=== PATIENT | female | born 1965 | race Caucasian/White ===

== ENCOUNTER 2022-04-22 14:28 | Outpatient (CLI) | payer OTHER, SELFPAY ==
--- NOTE | 2022-04-22 15:00 | CRLHL7_ITS ---
For Patients: As a result of the Century Cures Act, medical imaging exams and procedure reports are released immediately into your electronic medical record. You may view this report before your referring provider. If you have questions, please contact your health care provider. INDICATION: BRAIN LESION COMPARISON: none TECHNIQUE: A CT volumetric acquisition was performed of the brain without IV contrast. Please note that all CT scans at this facility use dose modulation, iterative reconstruction, and/or weight-based dosing when appropriate to reduce radiation dose to as low as reasonably achievable. FINDINGS: The CT images reveal a normal appearance of the cerebral ventricles and basal cisterns. There is no evidence of intracranial hemorrhage, tissue infarction or mass effect. The mastoid air cells and middle ear cavities are clear. The calvarium appears intact. There is a well-circumscribed structure within the clivus measuring 1 centimeter with soft tissue density and apparent communication to the left posterior sphenoid sinus. External auditory canal ear wax. IMPRESSION: Accessory left sphenoid sinus disease. Normal brain parenchyma. Please note that all CT scans at this facility use dose modulation, iterative reconstruction, and/or weight-based dosing when appropriate to reduce radiation dose to as low as reasonably achievable. Dictated by Wilberto Vicente MD @ 04/22/2022 3:22:43 PM (Electronically Signed)
--- NOTE | 2022-04-22 15:30 | CRLHL7_ITS ---
For Patients: As a result of the Cures Act, medical imaging exams and procedure reports are released immediately into your electronic medical record. You may view this report before your referring provider. If you have questions, please contact your health care provider. INDICATION: Evaluate clivus. TECHNIQUE: Multiplanar multisequence MR imaging acquired through the brain prior to and following intravenous contrast. COMPARISON: CT brain 04/22/2022, MRI brain 07/01/2021. FINDINGS: Circumscribed, 10 mm rounded T1/T2 hyperintensity within the clivus slightly caudal to the sella, not significantly changed. The recent CT demonstrates probable communication between the aforementioned signal intensity and left sphenoid sinus. The ventricles and sulci are within normal limits for patient age. No mass effect or midline shift. Stable scattered T2 FLAIR hyperintensities in the supratentorial white matter, nonspecific though typical for sequela of minimal chronic microvascular ischemic changes or migraine headaches. No intracranial hemorrhage or pathologic extra-axial fluid collection. No diffusion restriction to suggest acute infarction. No pathologic intra-axial or leptomeningeal enhancement. The major arterial flow voids of the skullbase are preserved. The globes are symmetric. The paranasal sinuses are well aerated. Trace mastoid fluid bilaterally. IMPRESSION: 1. Small circumscribed hyperintense signal in the clivus is not significantly changed compared to 07/01/2021. Given appearance on recent CT, findings are most compatible with entrapped secretions within the left sphenoid sinus. 2. No acute intracranial abnormality. Dictated by John Ambrose MD @ 04/24/2022 11:00:01 AM (Electronically Signed)
== END 2022-04-22 14:29 | disposition home or self-care (01) ==
LOC: CT 14:30
PROVIDERS: PCP Physician Assistant Medical; Visit Provider Neurological Surgery
DX: G93.9 Disorder of brain, unspecified (principal); J32.3 Chronic sphenoidal sinusitis
CPT/HCPCS: 70450; 70553; A9575

== ENCOUNTER 2022-09-21 08:14 | Outpatient (CLI) | payer OTHER, SELFPAY | END 2022-09-21 08:15 | disposition home or self-care (01) | LOC: FRMREF 09-23 09:21 | PROVIDERS: PCP Physician Assistant Medical; Visit Provider Physician Assistant Medical | DX: R82.90 Unspecified abnormal findings in urine (principal); N30.00 Acute cystitis without hematuria | CPT/HCPCS: 87086; 87186 ==

== ENCOUNTER 2022-09-26 15:14 | Outpatient (CLI) | payer OTHER, SELFPAY ==
--- NOTE | 2022-09-26 15:20 | CRLHL7_ITS ---
For Patients: As a result of the Century Cures Act, medical imaging exams and procedure reports are released immediately into your electronic medical record. You may view this report before your referring provider. If you have questions, please contact your health care provider. BILATERAL SCREENING MAMMOGRAM WITH COMPUTER-AIDED DETECTION AND TOMOSYNTHESIS TECHNIQUE: CC and MLO views were obtained. These mammographic images have been obtained using full-field digital technique. These mammographic images were interpreted with the benefit of computer-aided detection. Breast Tomosynthesis was used in this interpretation. COMPARISON FILM: 08/22/19, 05/25/16, 07/10/08. FINDINGS: The breasts are heterogeneously dense, which may obscure small masses IMPRESSION: There is no radiographic evidence for malignancy. ASSESSMENT: BI-RADS Category 1: Negative RECOMMENDATION: Routine screening mammogram in 1 year. A lay language report of this examination will be provided to the patient. Wilberto Vicente M.D. Diagnostic Radiologist [email or web address] CARMELITA/Dictated by: Wilberto Vicente MD @ 09/27/2022 9:25:00 AM (Electronically Signed)
== END 2022-09-26 15:15 | disposition home or self-care (01) ==
LOC: MAMMO 15:15
PROVIDERS: PCP Physician Assistant Medical; Visit Provider Physician Assistant Medical
DX: Z12.31 Encounter for screening mammogram for malignant neoplasm of breast (principal); R92.2 Inconclusive mammogram
CPT/HCPCS: 77063; 77067

== ENCOUNTER 2022-10-10 17:17 | Outpatient (CLI) | payer OTHER, SELFPAY | END 2022-10-10 17:18 | disposition home or self-care (01) | LOC: LKVREF 10-14 09:36 | PROVIDERS: PCP Physician Assistant Medical; Visit Provider Nurse Practitioner Family | DX: R30.0 Dysuria (principal); N30.90 Cystitis, unspecified without hematuria | CPT/HCPCS: 87086; 87186 ==

== ENCOUNTER 2022-10-25 16:55 | Outpatient (CLI) | payer OTHER, SELFPAY | END 2022-10-25 16:56 | disposition home or self-care (01) | PROVIDERS: PCP Physician Assistant Medical; Visit Provider Family Medicine | DX: N39.0 Urinary tract infection, site not specified (principal) | CPT/HCPCS: 87086; 87186 ==

== ENCOUNTER 2022-11-15 14:01 | Outpatient (CLI) | payer OTHER, SELFPAY | END 2022-11-15 14:02 | disposition home or self-care (01) | LOC: NFLDREF 11-17 10:34 | PROVIDERS: PCP Physician Assistant Medical; Referring Provider Physician Assistant Medical; Visit Provider Physician Assistant Medical | DX: N39.0 Urinary tract infection, site not specified (principal) | CPT/HCPCS: 87086 ==

== ENCOUNTER 2023-03-07 15:55 | Outpatient (CLI) | payer OTHER, SELFPAY | END 2023-03-07 15:56 | disposition home or self-care (01) | LOC: NFLDREF 03-08 05:34 | PROVIDERS: PCP Physician Assistant Medical; Referring Provider Physician Assistant Medical; Visit Provider Registered Nurse | DX: R30.0 Dysuria (principal); N39.0 Urinary tract infection, site not specified | CPT/HCPCS: 87086; 87186 ==

== ENCOUNTER 2023-03-21 16:07 | Outpatient (CLI) | payer OTHER, SELFPAY | END 2023-03-21 16:08 | disposition home or self-care (01) | LOC: NFLDREF 03-22 08:19 | PROVIDERS: PCP Physician Assistant Medical; Referring Provider Physician Assistant Medical; Visit Provider Registered Nurse | DX: N39.0 Urinary tract infection, site not specified (principal) | CPT/HCPCS: 87086; 87186 ==

== ENCOUNTER 2023-04-20 13:53 | Outpatient (CLI) | payer OTHER, SELFPAY ==
--- NOTE | 2023-04-20 14:00 | CRLHL7_ITS ---
For Patients: As a result of the Century Cures Act, medical imaging exams and procedure reports are released immediately into your electronic medical record. You may view this report before your referring provider. If you have questions, please contact your health care provider. INDICATION: Brain lesion found on MRI. TECHNIQUE: Multiplanar CT of the head prior to and after the administration 66 cc iodinated contrast. COMPARISON: CT head dated 04/22/2022. FINDINGS: No acute intracranial hemorrhage. The chase-white matter interface is preserved. No focus of abnormal enhancement on postcontrast imaging. The ventricles are normal in size. No significant interval change in the 9 mm well-circumscribed clival lucency communicating anteriorly with the sphenoid sinus. Unremarkable appearance of the orbits. No suspicious calvarial lesion. IMPRESSION: 1. No acute intracranial abnormality. 2. Stable 9 mm well-circumscribed clival lucency likely reflecting trapped secretions within an accessory sphenoid sinus. Please note that all CT scans at this facility use dose modulation, iterative reconstruction, and/or weight-based dosing when appropriate to reduce radiation dose to as low as reasonably achievable. Dictated by Robi Gonzalez MD @ 04/21/2023 10:50:30 AM (Electronically Signed)
--- NOTE | 2023-04-20 14:45 | CRLHL7_ITS ---
For Patients: As a result of the Century Cures Act, medical imaging exams and procedure reports are released immediately into your electronic medical record. You may view this report before your referring provider. If you have questions, please contact your health care provider. Indication: Lesion follow-up Technique: Noncontrast sagittal T1, axial FLAIR, T2 turbo spine echo, and diffusion weighted images. Supplemental post contrast T1 weighted axial and coronal sequences are provided after administration of 15 mL gadolinium-based IV contrast. Comparison: CT 04/20/2023 and MRI 04/22/2022 Findings: The ventricles, sulci and gyri are normal size, shape and contour for age. The midline structures are centrally located with no evidence of shift. There are no suspicious intra or extra-axial fluid collections. Stable small scattered foci of T2 prolongation in the cerebral white matter that are nonspecific. Stable nonenhancing T1 hyperintense oval 8 mm structure in the clivus with well-circumscribed corticated margins likely representing proteinaceous inspissated secretions or retention cyst in a small cleft of the left sphenoid sinus protruding into the clivus. No evidence of restricted diffusion to suggest acute ischemia. Stable pituitary gland and optic chiasm. The cervical tonsils are normal in signal and location. Expected flow voids in the cavernous carotids and basilar artery. No abnormal contrast enhancement involving the brain parenchyma, meninges, calvarium or skull base. None Impression: 1. No acute intracranial abnormality. 2. Stable nonenhancing T1 hyperintense oval 8 mm structure in the clivus with well-circumscribed corticated margins likely representing proteinaceous inspissated secretions or retention cyst in a small cleft of the left sphenoid sinus protruding into the clivus. 3. Stable mild chronic small vessel disease. Dictated by Wilberto Aguilar MD @ 04/21/2023 11:49:12 AM (Electronically Signed)
== END 2023-04-20 13:54 | disposition home or self-care (01) ==
LOC: CT 13:54
PROVIDERS: PCP Physician Assistant Medical; Visit Provider Neurological Surgery
DX: G93.9 Disorder of brain, unspecified (principal)
CPT/HCPCS: 70470; 70553; A9575; Q9967

== ENCOUNTER 2024-04-10 08:19 | Outpatient (CLI) | payer OTHER, SELFPAY ==
--- OUTSIDE RECORDS SUMMARY | 2024-04-10 08:22 | XMS_ITS | Continuity of Care Document ---
Author Name [facility] Organization [facility] Care Team Providers Care Bench Grinder Name Role Phone [facility] Unavailable Unavailable Medications Combined list of outpatient medications from Department of Defense and Veterans Affairs facilities.Medications provided include 1) outpatient medications from the last 15 months, and 2) patient-reported medications. Medication Details Route Status Patient Instructions Prescription Expires Prescription Number Last Dispense Date Ordering Provider Order Date Order Qty Source CEPHALEXIN (CEPHALEXIN MONOHYDRATE ), 500MG, CAPSULE, ORAL, TEVA USA, 500 ea. BOTTLE Active [id number] 4 2023 14 Pharmac y Data Transac tion Service Facilit y NITROFURANT OIN MONO-MACRO (NITROFURAN TOIN MONOHYD/M-C RYST), 100 MG, CAPSULE, ORAL, ALVOGEN INC, 100 ea. BOTTLE Active [id number] 4 2023 14 Pharmac y Data Transac tion Service Facilit y SULFAMETHOX AZOLE-TRIME THOPRIM (SULFAMETHO XAZOLE/TRIM ETHOPRIM), 800-160MG, TABLET, ORAL, AUROBINDO PHARM, 500 ea. BOTTLE Active [id number] 4 2023 14 Pharmac y Data Transac tion Service Facilit y SULFAMETHOX AZOLE-TRIME THOPRIM (SULFAMETHO XAZOLE/TRIM ETHOPRIM), 800-160MG, TABLET, ORAL, AUROBINDO PHARM, 500 ea. BOTTLE Active [id number] 4 2023 14 Pharmac y Data Transac tion Service Facilit y Immunizations Combined list of available immunizations from the Department of Defense and Veterans Affairs facilities. Immunization Series Date Given Administered By Site Reaction Lot Number CVX Code Drug Nutritional Chemist Status Comments Source INFLUENZA, UNSPECIFIED FORMULATION 2010 88 complet ed [place] [facility] Social History Combined list of available smoking, tobacco, and other social history from Department of Defense and Veterans Affairs facilities. Social History Type Response Date Comment Sourc e This section is an empty social history section. DoD
--- OUTSIDE RECORDS SUMMARY | 2024-04-10 08:22 | XMS_ITS | Continuity of Care Document ---
Author Organization [facility] Address [address] [place] [address] Phone Care Team Providers Care Preparation Plant Supervisor Name Role Phone Ondina MAN, PhD, Aleksey Unavailable Unavai lable Allergies, Adverse Reactions, Alerts Substance Reaction Status Criticality simvastatin Muscle pain Active No Information Medications Medication Instructions Dosage Effective Dates (start - stop) Status Comments OXYBUTYNIN CHLORIDE (unknown strength) Not Available - Active IBUPROFEN (unknown strength) Not Available - Active CITALOPRAM HBR (unknown strength) Not Available - Active ADDERALL (unknown strength) Not Available - Active Procedures Procedure Date Office/Outpatient Visit,[facility], [facility] 2019 Advance Directives Directive Yes / No Effective Date File Name No Information Encounters Encounter Description Practice Location Reason(s) For Visit Diagnoses Date Provider Providers Copied on Encounter [facility], [address], [place], [id number] , [place] tel: [phone] [facility] No Information 0 Ondina Ryder. [facility], [address], [place], [address], [place]. tel: [phone] Office/Outpat ient Visit, [facility], [address], [place], [id number] , [place] tel: [phone] [facility] Other intervertebral disc displacement, lumbar region 0 Ondina Ryder. [facility], [address], [place], [address], [place]. [phone] Referring Provider: Gm Ribeiro [address], [place], [address]. tel:[phone] [facility], [address], [place], [place], [id number] , [place] tel:[phone] [facility] Low back pain 0 Ondina Ryder. [facility], [address], [place], [address], [place]. [phone] Family History Family Member Type Diagnosis Age At Onset No Information Payers Payer name Insurance type Covered republican ID Authorden jarvistierra(s) [facility] [id number] Social History Type Description Quantity Date Captured Comments Sex Female Smoking Status No Information Chief Complaint And Reason For Visit No Information Reason For Referral Reason For Referral No Information History Of Present Illness Encounter Date Complaint History Of Prese nt Illness No Information Functional Status Date Functional Assessmen t No Information Instructions Date Instruction Additional Infor mation No Information Assessments Type Assessment Date No Information Patient Care Teams Name Effective Dates (start - stop) Status Members No Information
== END 2024-04-10 08:20 | disposition home or self-care (01) ==
PROVIDERS: PCP Physician Assistant Medical; Visit Provider Physician Assistant Medical
DX: R00.2 Palpitations (principal); Z13.220 Encounter for screening for lipoid disorders
CPT/HCPCS: 80053; 80061; 84443

== ENCOUNTER 2024-04-26 07:42 | Outpatient (CLI) | payer OTHER, SELFPAY ==
--- OUTSIDE RECORDS SUMMARY | 2024-04-26 07:45 | XMS_ITS | Encounter Summary ---
Author Organization [facility] Address [address] [place] [address]. [place] [address] Care Team Providers Care Experimental Psychologist Name Role Phone Sera Hoffman PA-C Primary Care Provider Zara Ingram MD Unavailable [phone] Nuvia Jauregui PA-C Unavailable [phone] Encounter Details Date Type Department Care Team (Late Contact Info) Description 07/06/2023 MyC Medical Advice [facility] [place] [address] [place] [address] Nuvia Jauregui PA-C [address] [place] [address] Social History Tobacco Use Types Packs/Day Years Used Date Smoking Tobacco: Former Cigarettes Smokeless Tobacco: Never Alcohol Use Standard Drinks/Week Comments Yes 0 (1 standard drink = 0.6 oz pur e alcohol) Adolescent Education Answer Date Record ed Getting School Help Needed Not on file 05/30 Sex and Gender Information Value Date Recorded Sex Assigned at Female 05/29/2023 5:20 PM CDT Gender Identity Female 05/29/2023 5:20 PM CDT Sexual Orientation Straight 05/29/2023 5: 20 PM CDT documented as of this encounter Plan of Treatment Upcoming Encounters Date Type Department Care Team (Late Contact Info) Description 05/30/2024 7:30 AM CDT Therapy Visit [facility] [place] [address] [address] Monica Murray, PT [address] [place] [address] 06/06/2024 8:10 AM CDT Therapy Visit [address] [address] Monica Murray, PT [address] [place] [address] 06/13/2024 8:10 AM CDT Therapy Visit [address] [address] Monica Murray, PT [address] [place] [address] 06/20/2024 8:10 AM CDT Therapy Visit [address] [address] Monica Murray, PT [address] [place] [address] 06/27/2024 8:10 AM CDT Therapy Visit [address] [address] Monica Murray, PT [address] [place] [address] 08/09/2024 3:00 PM OPTICAL ENGINEERING TECHNICIAN Office Visit [facility] [place] [address] [place] [phone] Nuvia Jauregui PA-C [address] [place] [address] documented as of this encounter Visit Diagnoses Not on filedocumented in this encounter Care Teams Experimental Psychologist Relationship Specialty Start Date End Date Sera Hoffman PA-C [facility] [address] [place] [address] PCP - General Physician Hogshead Dumper 04/11/23 Zara Ingram MD [address] [place] [address] [address] [place], [place] [address] Assigned Surgical Provider 07/22/23 09/20/23 Nuvia Jauregui PA-C [address] [place] [address] Assigned Surgical Provider 09/21/23 documented as of this encounter
--- OUTSIDE RECORDS SUMMARY | 2024-04-26 07:45 | XMS_ITS | Encounter Summary ---
Author Organization [facility] Address [address] [place] [address]. [place] [address] Care Team Providers Care Chief Petroleum Engineer Name Role Phone Sera Hoffman PA-C Primary Care Provider Nuvia Jauregui PA-C Unavailable [phone] Reason for Visit * Reason Comments Urinary Retention Here for 1 month fol low up Encounter Details Date Type Department Care Team (Late st Contact Info) Description 01/18/2024 2:30 PM CDT Office Visit [facility] [place] [address] [place] [address] [address] [place] [address] Nuvia Jauregui PA-C [address] [place] [address] Recurrent UTI (Primary Dx); Urinary retention; Incomplete bladder emptying; Constipation, unspecified constipation type; Pelvic floor dysfunction; Dyspareunia in female; Vaginal atrophy; Levator spasm Social History Tobacco Use Types Packs/Day Years Used Date Smoking Tobacco: Former Cigarettes Smokeless Tobacco: Never Alcohol Use Standard Drinks/Week Comments Yes 0 (1 standard drink = 0.6 oz pur e alcohol) PHQ-2 Answer Date Recorded PHQ-2 Score 0 07/26/2023 Adolescent Education Answer Date Record ed Getting School Help Needed Not on file 05/30 Sex and Gender Information Value Date Recorded Sex Assigned at Female 05/29/2023 5:20 PM CDT Gender Identity Female 05/29/2023 5:20 PM CDT Sexual Orientation Straight 05/29/2023 5: 20 PM CDT documented as of this encounter Last Filed Vital Signs Vital Sign Reading Time Taken Comments Blood Pressure - - Pulse - - Temperature - - Respiratory Rate - - Oxygen Saturation - - Inhaled Oxygen Concentration - - Weight 61.2 kg (135 lb) 01/18/2024 2:24 PM CDT Height 160 cm (5' 2.99) 01/18/2024 2:24 PM CDT Body Mass Index 23.92 01/18/2024 2:24 PM CDT documented in this encounter Progress Notes * Nuvia Jauregui PA-C - 01/18/2024 2:30 PM CDT Urology Clinic Name: [facility] Date of : 1965 Accompanied at today's visit by:self Chief Complaint: Incomplete bladder emptying History of Present Illness: January 18, 2024 HISTORY: We have been following 58 year old Zara Samuel for Carlo, dyspareunia, levator spasm, pelvic floor dysfunction, vaginal atrophy, constipation, incomplete bladder emptying. Her CT urogram from 06/29/23 showed Mildly prominent intrarenal collecting renal pelvis on the left. This may indicate a l eft ureteropelvic junction obstruction. Was seen by Dr. Ingram on 07/19/23 for cysto which was unremarkable and advised to proceed with PFPT and obtain lasix renal scan. NM lasix renogram that was negative for obstruction on 07/25/23. She is also noted to have incomplete bladder emptying when followed with OBGYN specialists in 12/2022. Did trial pessary sizes at that time as well (ring #3 an #2) forincomplete emptying and cystocele grade 1-2 with vaginal vault prolapse grade 1 at that time. No longer uses pessaries. At consultation on 05/30/23, did not see obvious significant prolapse. DiscussedCIC in 06/2023, however patient did not start CIC at that time. Last encounter on 12/15/23 noted to have elevated PVR of 535mL. Strongly advised CIC TID. Messaged to clinic on 12/21/23 with PVRs 100-200mL and advised to decrease to CIC BID. Here today for follow-up. Per EMR, has not had UTI since last encounter. Continues to cath BID. Reports PVRs are between 100-200mL. Has yet to get back to PFPT but would like to as it was significantly helping her symptoms. Of note, have considered valium vaginal suppositories in the past. Continues on methenamine and Vitamin C along with estrogen cream for UTI prevention. Started stool softeners for her constipation. Patient voices no other concerns at this time. Allergies: Allergies Allergen Reactions Simvastatin Muscle Pain (Myalgia) Medications: Current Outpatient Medications Medication Sig Dispense Refill amphetamine-dextroamphetamine (ADDERALL) 20 MG tablet twice a day amphetamine-dextroamphetamine (ADDERALL) 20 MG tablet buPROPion (WELLBUTRIN XL) 150 MG 24 hr tablet methenamine hippurate (HIPREX) 1 g tablet Take 1 tablet (1 g) by mouth 2 times daily Must take with1 gram vitamin C twice daily. 30 tablet 3 sulfamethoxazole-trimethoprim (BACTRIM DS) 800-160 MG tablet Take 1 tablet by mouth 2 times daily Take if develop UTI symptoms on your trip 14 tablet 0 No current facility-administered medications for this visit. Past Surgical History: Past Surgical History: Procedure Laterality Date BUNIONECTOMY SECTION HYSTERECTOMY TUBAL LIGATION Physical Exam: Vitals: 01/18/24 1424 Weight: 61.2 kg (135 lb) Height: 1.6 m (5' 2.99) PSYCH: NAD EYES: EOMI NEURO: AAO x3 LABS: UC 12/15/23 >100,000 E. Coli (pansensitive) 11/29/23 >100,000 E. Coli (pansensitive) 10/18/23 50,000-100,000 E. Coli (pansensitve) 09/25/23 50,000-100,000 E. Coli (pansensitive) Creatinine Date Value Ref Range Status 07/04/2023 0.64 0.51 - 0.95 mg/dL Final Assessment and Plan: 58 year old is a pleasant female who has incomplete bladder emptying/retention, Carlo, dyspareunia, levator spasm, pelvic floor dysfunction, vaginal atrophy, constipation. Plan: - continue CIC; try going down to once daily and monitor PVRs. - plans to go back to PFPT. - continue estrogen cream. - continue methenamine and vitamin C. - Have discussed VUDS in the future, however patient would like to get back to PFPT first before pursuing this. - Plan to follow-up in 3 months - contact clinic if develops s/s of UTI in the future. - continue stool softeners for constipation. - After discussing the assessment and plan with patient, patient verbalizes understanding and agrees to the above plan. All questions answered. 24 minutes spent on the date of the encounter doing chart review, review of labs, review of test results, interpretation of tests, patient visit and documentation. Nuvia Jauregui PA-C Urology January 18, 2024 Patient Care Team: Sera Hoffman PA-C as PCP - General (Physician Onion Farmer) Nuvia Jauregui PA-C as Assigned Surgical Provider documented in this encounter Plan of Treatment Upcoming Encounters Date Type Department Care Team (Late st Contact Info) Description 05/30/2024 7:30 AM CDT Therapy Visit [address] [address] Monica Murray, PT [address] [place] [address] 06/06/2024 8:10 AM CDT Therapy Visit [address] [address] Monica Murray, PT [address] [place] [address] 06/13/2024 8:10 AM CDT Therapy Visit [address] [address] Monica Murray, PT [address] [place] [address] 06/20/2024 8:10 AM CDT Therapy Visit [address] [place] [address] [place] [address] [place] [address] 06/27/2024 8:10 AM CDT Therapy Visit [facility] [address] [place] [address] [address] [place] [address] [place], [place] [id number] [place] [address] 08/09/2024 3:00 PM GAS PLANT TECHNICIAN Office Visit [facility] [address] [place] [phone] Nuvia Jauregui PA-C [address] [place], [place] [phone] documented as of this encounter Visit Diagnoses Diagnosis Recurrent UTI- Primary Urinary tract infection, site not specified Urinary retention Retention of urine, unspecified Incomplete bladder emptying Constipation, unspecified constipation type Pelvic floor dysfunction Pelvic muscle wasting Dyspareunia in female Vaginal atrophy Postmenopausal atrophic vaginitis Levator spasm Abnormal involuntary movements documented in this encounter Care Teams Chief Petroleum Engineer Relationship Specialty Start Date End Date Sera Hoffman PA-C [facility] [address] [place] [address] PCP - General Physician Onion Farmer 04/11/23 Nuvia Jauregui PA-C [address] [place] [address] Assigned Surgical Provider 09/21/23 documented as of this encounter
--- OUTSIDE RECORDS SUMMARY | 2024-04-26 07:45 | XMS_ITS | Encounter Summary ---
Author Organization [facility] Address [address] [place] [address]. [place] [address] Care Team Providers Care Launching Pad Mechanic Name Role Phone Sera Hoffman PA-C Primary Care Provider Nuvia Jauregui PA-C Unavailable [phone] Reason for Visit * Reason Comments Recurrent UTI's 3 month follow up Encounter Details Date Type Department Care Team (Late st Contact Info) Description 04/25/2024 2:30 PM CDT Office Visit [facility] [address] [place] [address] Nuvia Jauregui PA-C [address] [place], [place] [address] Recurrent UTI (Primary Dx); Urinary retention; Incomplete bladder emptying; Constipation, unspecified constipation type; Pelvic floor dysfunction; Dyspareunia in female; Vaginal atrophy; Levator spasm Social History Tobacco Use Types Packs/Day Years Used Date Smoking Tobacco: Former Cigarettes Passive Smoke Exposure: Never Smokeless Tobacco: Never Tobacco Cessation:Counseling Given: Not Answered Alcohol Use Standard Drinks/Week Comments Yes 0 (1 standard drink = 0.6 oz pur e alcohol) PHQ-2 Answer Date Recorded PHQ-2 Score 0 04/25/2024 Adolescent Education Answer Date Record ed Getting School Help Needed Not on file 05/30 Sex and Gender Information Value Date Recorded Sex Assigned at Female 05/29/2023 5:20 PM CDT Gender Identity Female 05/29/2023 5:20 PM CDT Sexual Orientation Straight 05/29/2023 5: 20 PM CDT documented as of this encounter Last Filed Vital Signs Vital Sign Reading Time Taken Comments Blood Pressure 131/89 04/25/2024 1:59 PM CDT Pulse 86 04/25/2024 1:59 PM CDT Temperature - - Respiratory Rate - - Oxygen Saturation 98% 04/25/2024 1:59 PM CDT Inhaled Oxygen Concentration - - Weight 61.2 kg (135 lb) 04/25/2024 1:59 PM CDT p er patient Height 160 cm (5' 3) 04/25/2024 1:59 PM CDT per patient Body Mass Index 23.91 04/25/2024 1:59 PM CDT documented in this encounter Progress Notes * Nuvia Jauregui PA-C - 04/25/2024 2:30 PM CDT Urology Clinic Name: [facility] Date of : 1965 Accompanied at today's visit by:self Chief Complaint: Follow-up History of Present Illness: April 25, 2024 HISTORY: We have been following 59 year old aZra Samuel for Carlo, dyspareunia, levator spasm, pelvic [...] did not start CIC at that time. Had an elevated PVR of 535mL at encounter on 12/15/23 and strongly advised CIC TID. She then messaged clinic on 12/21/23 with PVR amountsand advised to decrease CIC to BID. Here today for follow-up. Per EMR, no UTIs since 12/15/23 and is pleased by this. Continues on methenamine BID with vitamin C. Continues estrogen cream. Continue to cath BID. States there may be some days where her PVR for one of the times is 0mL but only occasionally. States her first PT appointment is in May. Of note, have considered valium vaginal suppositories in the past. Denies any s/s of UTI today. Patient voices no other concerns at this [...] if develop UTI symptoms on your trip (Patient not taking: Reported on 04/25/2024) 14 tablet 0 No current facility-administered medications for this visit. Past Surgical History: Past Surgical History: Procedure Laterality Date BUNIONECTOMY SECTION HYSTERECTOMY TUBAL LIGATION Physical Exam: Vitals: 04/25/24 1359 BP: 131/89 BP Location: Left arm Patient Position: Sitting Cuff Size: Adult Regular Pulse: 86 SpO2: 98% Weight: 61.2 kg (135 lb) Height: 1.6 m (5' 3) PSYCH: NAD EYES: EOMI NEURO: AAO x3 LABS: Creatinine Date Value Ref Range Status 07/04/2023 0.64 0.51 - 0.95 mg/dL Final Assessment and Plan: 59 year old is a pleasant female who has Carlo, dyspareunia, levator spasm, pelvic floor dysfunction, vaginal atrophy, constipation, incomplete bladder emptying. Plan: - continue CIC BID - keep PFPT appointments. - continue estrogen cream; renewed today. - continue methenamine and vitamin C for 3 more months then discontinue to see how she smith off of medication. - Have discussed VUDS in the future, however patient would like to get back to PFPT first before pursuing this. - Plan to follow-up July 2024. - contact clinic if develops s/s of UTI in the future. - After discussing the assessment and plan with patient, patient verbalizes understanding and agrees to the above plan. All questions answered. 15 minutes spent on the date of the encounter doing chart review, review of outside records, reviewof test results, interpretation of tests, patient visit and documentation. Nuvia Jauregui PA-C Urology April 25, 2024 Patient Care Team: Sera Hoffman PA-C as PCP - General (Physician Recovery Agent) Nuvia Jauregui PA-C as Assigned Surgical Provider documented in this encounter Nursing Notes * Lashonda Caldwell MA - 04/25/2024 2:30 PM CDT Chief Complaint Patient presents with Recurrent UTI's 3 month follow up Patient has history of UTI's. Patient states she has no uti symptoms and states she is doing well. Lashonda Caldwell MA on 04/25/2024 at 1:58 PM documented in this encounter Plan of Treatment Upcoming Encounters Date Type Department Care Team (Late st Contact Info) Description 05/30/2024 7:30 AM CDT Therapy Visit [address] [place] [address] [id number] Monica Murray, PT [address] [place] [address] [phone] 06/06/2024 8:10 AM CDT Therapy Visit [address] [place] [address] [id number] Monica Murray, PT [address] [place] [address] [phone] 06/13/2024 8:10 AM CDT Therapy Visit [address] [address] Monica Murray, PT [address] [place] [address] 364687 06/20/2024 8:10 AM CDT Therapy Visit [address] [address] Monica Murray, PT [address] [place] [address] 235857 06/27/2024 8:10 AM CDT Therapy Visit [address] [address] Monica Murray, PT [address] [place] [address] 08/09/2024 3:00 PM LINER INSTALLER Office Visit [facility] [address] [place] [address] Nuvia Jauregui PA-C [address] [place] [address] 969115 documented as of this encounter Visit Diagnoses Diagnosis Recurrent UTI- Primary Urinary tract infection, site not specified Urinary retention Retention of urine, unspecified Incomplete bladder emptying Constipation, unspecified constipation type Pelvic floor dysfunction Pelvic muscle wasting Dyspareunia in female Vaginal atrophy Postmenopausal atrophic vaginitis Levator spasm Abnormal involuntary movements documented in this encounter Care Teams Launching Pad Mechanic Relationship Specialty Start Date End Date Sera Hoffman PA-C [facility] [address] [place] [address] PCP - General Physician Recovery Agent 04/11/23 Nuvia Jauregui, KOURTNEYC [address] [place] [address] Assigned Surgical Provider 09/21/23 documented as of this encounter
--- OUTSIDE RECORDS SUMMARY | 2024-04-26 07:45 | XMS_ITS | Encounter Summary ---
Author Organization [facility] Address [address] [place] [address] Care Team Providers Care Physician Practice Coordinator Name Role Phone Sera Hoffman PA-C Primary Care Provider Nuvia Jauregui PA-C Unavailable [phone] Encounter Details Date Type Department Care Team (Latest Contact Info) Description 01/18/2024 Travel Social History Tobacco Use Types Packs/Day Years [...] Description 05/30/2024 7:30 AM CDT Therapy Visit [facility] [address] [facility] [address] [place] [address] [place] [address] [place] [address] 06/06/2024 8:10 AM CDT Therapy Visit [facility] [address] [address] Trevor Monica, PT [address] [place] [address] 06/13/2024 8:10 AM CDT Therapy Visit [address] [address] Trevor Monica, PT [address] [place] [address] 06/20/2024 8:10 AM CDT Therapy Visit [address] [address] Trevor Monica, PT [address] [place] [address] 786577 06/27/2024 8:10 AM CDT Therapy Visit [address] [address] Trevor Monica, PT [address] [place] [address] 08/09/2024 3:00 PM POWDERMAN Office Visit [facility] [place] [address] [facility] [address] [place] [phone] Nuvia Jauregui PA-C [address] [place], [place] [phone] documented as of this encounter Visit Diagnoses Not on filedocumented in this encounter Care Teams Physician Practice Coordinator Relationship Specialty Start Date End Date Sera Hoffman PA-C [facility] [address] [place] [address] PCP - General Physician Police Detective 04/11/23 Nuvia Jauregui, KOURTNEYC [address] [place], [place] [phone] Assigned Surgical Provider 09/21/23 documented as of this encounter
--- OUTSIDE RECORDS SUMMARY | 2024-04-26 07:45 | XMS_ITS | Referral Summary ---
Author Organization [facility] Address [address] [place] [address]. [place] [address] Care Team Providers Care Clay Miller Name Role Phone Sera Hoffman PA-C Primary Care Provider Nuvia Jauregui PA-C Unavailable Encounters Date Type Department Care Team Description 04/25/2024 Travel 04/25/2024 2:30 PM CDT Office Visit [facility] [place] [address] [place] [phone] Nuvia Jauregui PA-C Recurrent UTI (Primary Dx); Urinary retention; Incomplete bladder emptying; Constipation, unspecified constipation type; Pelvic floor dysfunction; Dyspareunia in female; Vaginal atrophy; Levator spasm 04/20/2024 Travel 02/15/2024 Care Coordination [facility] [place] [id number] [place] [phone] Nuvia Jauregui PA-C Clinic Care Coordination - Follow-up (CIC Follow Up) 02/07/2024 Care Coordination [facility] [address] [place] [phone] Nuvia Jauregui PA-C Clinic Care Coordination - Follow-up (CIC Follow Up) from Last 3 Months Allergies Active Allergy Reactions Criticality Noted Date Comments Simvastatin Muscle Pain (Myalgia) 03/19/2009 Medications Medication Sig Dispensed Refills Start Date End Date Status amphetamine-dextroa mphetamine (ADDERALL) 20 MG tablet 08/28/2016 Active buPROPion (WELLBUTRIN XL) 150 MG 24 hr tablet 09/28/2022 Active methenamine hippurate (HIPREX) 1 g tabletIndications:R ecurrent UTI Take 1 tablet (1 g) by mouth 2 times daily Must take with 1 gram vitamin C twice daily. 30 tablet 3 09/26/2023 Active amphetamine-dextroa mphetamine (ADDERALL) 20 MG tablet twice a day 04/26/2023 Active sulfamethoxazole-tr imethoprim (BACTRIM DS) 800-160 MG tabletIndications:R ecurrent UTI Take 1 tablet by mouth 2 times daily Take if develop UTI symptoms on your trip 14 tablet 12/15/2023 Active Additional Information Patient not taking.Reported on 04/25/2024 estradiol (ESTRACE) 0.1 MG/GM vaginal creamIndications:Re current UTI Place 2 g vaginally twice a week. 40 g 4 04/25/2024 Active Active Problems Problem Noted Date Diagnosed Date Dyspareunia in female 09/22/2023 Pelvic floor dysfunction 09/22/2023 Dyspareunia, female 09/15/2023 Levator spasm 09/15/2023 Social History Tobacco Use Types Packs/Day Years [...] Orientation Straight 05/29/2023 5: 20 PM CDT Last Filed Vital Signs Vital Sign Reading [...] Mass Index 23.91 04/25/2024 1:59 PM CDT Plan of Treatment Upcoming Encounters Date Type Department Care Team (Late st Contact Info) Description 05/30/2024 7:30 AM CDT Therapy Visit [address] [address] Monica Murray, PT [address] [place] [address] 06/06/2024 8:10 AM CDT Therapy Visit [address] [address] Monica Murray, PT [address] [place] [address] 06/13/2024 8:10 AM CDT Therapy Visit [address] [address] Monica Murray, PT [address] [place] [address] 06/20/2024 8:10 AM CDT Therapy Visit [address] [address] Monica Murray, PT [address] [place] [address] 06/27/2024 8:10 AM CDT Therapy Visit [address] [address] Monica Murray, PT [address] [place] [address] 08/09/2024 3:00 PM TRACTOR TRAILER DRIVER Office Visit [facility] [place] [address] [facility] [address] [place] [address] uNvia Jauregui PA-C [address] [place] [address] Procedures Procedure Name Priority Date/Time Associated Diagnosis Comments BASIC METABOLIC PANEL Routine 07/04/2023 2:08 PM TRACTOR TRAILER DRIVER Recurrent UTI from Last 3 Months or Most Recently Relevant to Health Maintenance Results * Basic metabolic panel [LAB15] (07/04/2023 2:08 PM TRACTOR TRAILER DRIVER) Sodium 141 135 - 145 mmol/L 07/04/2023 9:24 PM TRACTOR TRAILER DRIVER [facility] Comment:Reference intervals for this test were updated on 05/23/2023 to more accurately reflect our healthy population. There may be differences in the flagging of prior results with similar values performed with this method. Interpretation of those prior results can be made in the context of the updated reference intervals. Potassium 3.9 3.4 - 5.3 mmol/L 07/04/2023 9:24 PM TRACTOR TRAILER DRIVER [facility] Chloride 104 98 - 107 mmol/L 07/04/2023 9:24 PM TRACTOR TRAILER DRIVER [facility] Carbon Dioxide (CO2) 26 22 - 29 mmol/L 07/04/2023 9:24 PM TRACTOR TRAILER DRIVER [facility] Anion Gap 11 7 - 15 mmol/L 07/04/2023 9:24 PM TRACTOR TRAILER DRIVER [facility] Urea Nitrogen 14.3 6.0 - 20.0 mg/dL 07/04/2023 9:24 PM TRACTOR TRAILER DRIVER [facility] Creatinine 0.64 0.51 - 0.95 mg/dL 07/04/2023 9:24 PM TRACTOR TRAILER DRIVER [facility] GFR Estimate >90 >60 mL/min/1. 73m2 07/04/2023 9:24 PM TRACTOR TRAILER DRIVER [facility] Calcium 9.4 8.6 - 10.0 mg/dL 07/04/2023 9:24 PM TRACTOR TRAILER DRIVER [facility] Glucose 90 70 - 99 mg/dL 07/04/2023 9:24 PM TRACTOR TRAILER DRIVER [facility] Blood BLOOD SPECIMEN / Unknown Venipuncture / Unknown 07/04/2023 2:08 PM TRACTOR TRAILER DRIVER 07/04/2023 2:08 PM TRACTOR TRAILER DRIVER Nuvia Jauregui PA-C LAB - BLOOD ORDJustin SANDERS [facility] [address] [facility], Room [address] [place] [address], [facility] [phone] from Last 3 Months or Most Recently Relevant to Health Maintenance Care Teams Clay Miller Relationship Specialty Start Date End Date Sera Hoffman PA-C [facility] [address] [place] [address] PCP - General Physician Tubing Machine Tender 04/11/23 Nuvia Jauregui PA-C [address] [place] [address] Assigned Surgical Provider 09/21/23
--- OUTSIDE RECORDS SUMMARY | 2024-04-26 07:45 | XMS_ITS | Encounter Summary ---
Author Organization [facility] Address [address] [place] [address]. [place] [address] Care Team Providers Care Final Inspector Movement Assembly Name Role Phone Sera Hoffman PA-C Primary Care Provider Nuvia Jauregui PA-C Unavailable [phone] Reason for Visit * Reason Comments Clinic Care Coordination - Follow-up CIC Follow Up Encounter Details Date Type Department Care Team (Late st Contact Info) Description 02/07/2024 Care Coordination [facility] [place] [address] [facility] [address] [place] [address] Nuvia Jauregui PA-C [address] [place] [address] Clinic Care Coordination - Follow-up (CIC Follow Up) Social History Tobacco Use Types Packs/Day Years [...] PM CDT documented as of this encounter Progress Notes * Miriam Reid RN - 02/07/2024 9:54 AM CDT From: Nuvia Jauregui PA-C Sent: 01/18/2024 3:26 PM CDT To: Miriam Reid RN Told patient to drop to CIC once daily to see what her PVRs are like and if UTIs recur. Can you check in on her in about 2-3 weeks to see how cathing is going please? documented in this encounter Plan of Treatment Upcoming Encounters Date Type Department Care Team (Late st Contact Info) Description 05/30/2024 7:30 AM CDT Therapy Visit [address] [address] Monica Murray, PT [address] [place] [address] 06/06/2024 8:10 AM CDT Therapy Visit [address] [address] Monica Murray, PT [address] [place] [address] 06/13/2024 8:10 AM CDT Therapy Visit [address] [address] Monica Murray, PT [address] [place] [address] 06/20/2024 8:10 AM CDT Therapy Visit [address] [address] Monica Murray, PT [address] [place] [address] 06/27/2024 8:10 AM CDT Therapy Visit [facility] [address] [facility] [address] [place] [address] [place] [address] [place] [address] 08/09/2024 3:00 PM ETL MANAGER Office Visit [facility] [place] [address] [place] [address] [address] [place] [phone] Nuvia Jauregui PA-C [address] [place], [place] [address] documented as of this encounter Visit Diagnoses Not on filedocumented in this encounter Care Teams Final Inspector Movement Assembly Relationship Specialty Start Date End Date Sera Hoffman PA-C [facility] [address] [place] [address] PCP - General Physician Technology Resource Teacher 04/11/23 Nuvia Jauregui PA-C [address] [place], [place] 5[address] Assigned Surgical Provider 09/21/23 documented as of this encounter
--- OUTSIDE RECORDS SUMMARY | 2024-04-26 07:45 | XMS_ITS | Encounter Summary ---
Author Organization [facility] Address [address] [place] [address] Care Team Providers Care Hoop Driving Machine Operator Name Role Phone Sera Hoffman PA-C Primary Care Provider Nuvia Jauregui PA-C Unavailable [phone] Encounter Details Date Type Department Care Team (Latest Contact Info) Description 04/20/2024 Travel Social History Tobacco Use Types Packs/Day [...] Description 05/30/2024 7:30 AM CDT Therapy Visit [facility] [address] [facility] [address] [place] [address] [place] [address] [place] [address] 06/06/2024 8:10 AM CDT Therapy Visit [facility] [address] [address] Trevor Monica, PT [address] [place] [address] 06/13/2024 8:10 AM CDT Therapy Visit [address] [address] Trevor Monica, PT [address] [place] [address] 06/20/2024 8:10 AM CDT Therapy Visit [address] [address] Trevor Monica, PT [address] [place] [address] 036867 06/27/2024 8:10 AM CDT Therapy Visit [address] [address] Trevor Monica, PT [address] [place] [address] 08/09/2024 3:00 PM MACHINE CLIPPER Office Visit [facility] [place] [address] [facility] 500 [place] [phone] Nuvia Jauregui PA-C [address] [place], [place] [address] documented as of this encounter Visit Diagnoses Not on filedocumented in this encounter Care Teams Hoop Driving Machine Operator Relationship Specialty Start Date End Date Sera Hoffman PA-C [facility] [address] [place] [address] PCP - General Physician Roto Rooter Operator 04/11/23 Nuvia Jauregui, KOURTNEYC [address] [place], [place] [phone] Assigned Surgical Provider 09/21/23 documented as of this encounter
--- OUTSIDE RECORDS SUMMARY | 2024-04-26 07:45 | XMS_ITS | Encounter Summary ---
Author Organization [facility] Address [address] [place] [address]. [place] [address] Care Team Providers Care Wait Staff Name Role Phone Sera Hoffman PA-C Primary Care Provider Nuvia Jauregui PA-C Unavailable [phone] Encounter Details Date Type Department Care Team (Late st Contact Info) Description 10/17/2023 MyC Medical Advice [facility] [address] [place] [address] Nuvia Jauregui PA-C [address] [place] [address] Social History Tobacco Use Types [...] CDT Therapy Visit [facility] [address] [place] [address] Monica Murray, PT [address] [place] [address] 06/06/2024 8:10 AM CDT Therapy Visit [address] [address] Monica Murray, PT [address] [place] [address] 06/13/2024 8:10 AM CDT Therapy Visit [address] [address] Monica Murray, PT [address] [place] [address] 06/20/2024 8:10 AM CDT Therapy Visit [address] [address] Monica Murray, PT [address] [place] [address] 06/27/2024 8:10 AM CDT Therapy Visit [address] [address] Monica Murray, PT [address] [place] [address] 08/09/2024 3:00 PM FOUR HORSE HITCH DRIVER Office Visit [facility] [place] [address] [facility] [address] [place] [phone] Nuvia Jauregui PA-C [address] [place] [address] documented as of this encounter Visit Diagnoses Not on filedocumented in this encounter Care Teams Wait Staff Relationship Specialty Start Date End Date Sera Hoffman PA-C [facility] [address] [place] [address] PCP - General Physician Appeals Court Associate Justice 04/11/23 Nuvia Jauregui PA-C [address] [place] [address] Assigned Surgical Provider 09/21/23 documented as of this encounter
--- OUTSIDE RECORDS SUMMARY | 2024-04-26 07:45 | XMS_ITS | Encounter Summary ---
Author Organization [facility] Address [address] [place] [address] Care Team Providers Care Rail Car Unloader Name Role Phone Sera Hoffman PA-C Primary Care Provider Nuvia Jauregui PA-C Unavailable [phone] Encounter Details Date Type Department Care Team (Latest Contact Info) Description 04/25/2024 Travel Social History Tobacco Use Types Packs/Day Years Used Date Smoking Tobacco: Former Cigarettes Passive Smoke Exposure: Never Smokeless Tobacco: Never Alcohol Use Standard Drinks/Week [...] Description 05/30/2024 7:30 AM CDT Therapy Visit [facility] [address] [facility] [address] [place], [place] 375[address] [place] [address] [place] [address] 06/06/2024 8:10 AM CDT Therapy Visit [address] [address] Monica Murray, PT [address] [place] [address] 06/13/2024 8:10 AM CDT Therapy Visit [address] [address] Monica Murray, PT [address] [place] [address] 06/20/2024 8:10 AM CDT Therapy Visit [address] [address] Monica Murray, PT [address] [place] [address] 601507 06/27/2024 8:10 AM CDT Therapy Visit [address] [address] Monica Murray, PT [address] [place] [address] 08/09/2024 3:00 PM STAGE ELECTRICIAN Office Visit [facility] [address] [place] [address] Nuvia Jauregui PA-C [address] [place] [address] [phone] documented as of this encounter Visit Diagnoses Not on filedocumented in this encounter Care Teams Rail Car Unloader Relationship Specialty Start Date End Date Sera Hoffman PA-C [facility] [address] [place] [address] PCP - General Physician Downstairs Maid 04/11/23 Nuvia Jauregui, KOURTNEYC [address] [place] [address] Assigned Surgical Provider 09/21/23 documented as of this encounter
--- OUTSIDE RECORDS SUMMARY | 2024-04-26 07:45 | XMS_ITS | Encounter Summary ---
Author Organization [place] Address [address] [place] [address]. [place] [address] Care Team Providers Care Applications Sales Representative Name Role Phone Sera Hoffman PA-C Primary Care Provider Nuvia Jauregui PA-C Unavailable [phone] Encounter Details Date Type Department Care Team (Late st Contact Info) Description 11/29/2023 MyC Medical Advice [facility] [address] [place] [address] Nuvia Jauregui PA-C [address] [place] [address] Suspected UTI (Primary Dx) Social History Tobacco Use Types Packs/Day Years [...] Description 05/30/2024 7:30 AM CDT Therapy Visit [facility] [address] [address] Monica Murray, PT [address] [place] [address] 06/06/2024 8:10 AM CDT Therapy Visit [address] [address] Monica Murray, PT [address] [place] [address] 06/13/2024 8:10 AM CDT Therapy Visit [address] [address] Monica Murray, PT [address] [place] [address] 06/20/2024 8:10 AM CDT Therapy Visit [address] [address] Monica Murray, PT [address] [place] [address] 06/27/2024 8:10 AM CDT Therapy Visit [address] [address] Monica Murray, PT [address] [place] [address] 08/09/2024 3:00 PM CLOTH FRAMER Office Visit [facility] [place] [address] [facility] [address] [place] [phone] Nuvia Jauregui PA-C [address] [place] [address] documented as of this encounter Results * (ABNORMAL) Urine Culture Aerobic Bacterial [[id number]] (11/29/2023 4:11 PM CDT) Culture >100,000 CFU/mL Escherichia coli(A) 11/30/2023 11:55 PM CDT [facility] Urine MID-STREAM URINE SPECIMEN / Unknown Non-blood Collection / Unknown 11/29/2023 4:11 PM CDT 11/29/2023 4:11 PM CDT Narrative Organism Antibiotic Method Susceptibility Escherichia coli Ampicillin SHIRLEY 16 ug/mL: Intermediate Escherichia coli Ampicillin/ Sulbactam SHIRLEY 4 ug/mL: Susceptible Escherichia coli Piperacillin/Tazobactam SHIRLEY <=4 ug/mL: Susceptible Escherichia coli Cefazolin SHIRLEY <=4 ug/mL: Susceptible Comment:Cefazolin DC C breakpoints are for the treatment of uncomplicated urinary tract infections. For the treatment of systemic infections, please contact the laboratory for additional testing. Escherichia coli Cefoxitin SHIRLEY <=4 ug/mL: Susceptible Escherichia coli Ceftazidime SHIRLEY <=1 ug/mL: Susceptible Escherichia coli Ceftriaxone SHIRLEY <=1 ug/mL: Susceptible Escherichia coli Cefepime SHIRLEY <=1 ug/mL: Susceptible Escherichia coli Gentamicin SHIRLEY <=1 ug/mL: Susceptible Escherichia coli Tobramycin SHIRLEY <=1 ug/mL: Susceptible Escherichia coli Ciprofloxacin SHIRLEY <=0.25 ug/mL: Susceptible Escherichia coli Levofloxacin SHIRLEY <=0.12 ug/mL: Susceptible Escherichia coli Nitrofurantoin SHIRLEY <=16 ug/mL: Susceptible Escherichia coli Trimethoprim/Sulfamethoxazole SHIRLEY <=1/19 ug/mL: Susceptible Nuvia Jauregui PA-C LAB - MICRO GENE RAL ORDERABLES [facility] Inf. Diseases Diag. Lab [address] [facility], [address] [place] [address] * (ABNORMAL) UA without Microscopic [[id number]] (11/29/2023 4:11 PM CDT) Color Urine Light Yellow Colorless, Straw, Light Yellow, Yellow 11/29/2023 4:32 PM CDT LABORATORY Appearance Urine Slightly Cloudy(A) Clear 11/29/2023 4:32 PM CDT [facility] Glucose Urine Negative Negative mg/dL 11/29/2023 4:32 PM CDT [facility] Bilirubin Urine Negative Negative 4:32 PM CDT [facility] Ketones Urine Negative Negative mg/dL 11/29/2023 4:32 PM CDT LABORATORY Specific Franklin Urine 1.011 1.003 - 1.035 11/29/2023 4:32 PM CDT LABORATORY Blood Urine Trace(A) Negative 11/29/2023 4:32 PM CDT LABORATORY pH Urine 6.5 5.0 - 7.0 11/29/2023 4:32 PM CDT LABORATORY Protein Albumin Urine Negative Negative mg/dL 11/29/2023 4:32 PM CDT LABORATORY Urobilinogen Urine Normal Normal, 2.0 mg/dL 11/29/2023 4:32 PM CDT LABORATORY Nitrite Urine Positive(A) Negative 11/29/2023 4:32 PM CDT LABORATORY Leukocyte Esterase Urine Moderate(A) Negative 11/29/2023 4:32 PM CDT LABORATORY Urine MID-STREAM URINE SPECIMEN / Unknown Non-blood Collection / Unknown 11/29/2023 4:11 PM CDT 11/29/2023 4:11 PM CDT Nuvia Jauregui PA-C LAB - URINE [place] [facility] Organization Address City/State/ZIP Co de Phone Number [facility] [address] Lab (1st floor, no room number) [place] [address] documented in this encounter Visit Diagnoses Diagnosis Suspected UTI- Primary documented in this encounter Care Teams Applications Sales Representative Relationship Specialty Start Date End Date Sera Hoffman PA-C [facility] [address] [place] [address] PCP - General Physician Car Ferry Master 04/11/23 Nuvia Jauregui PA-C [address] [place] [address] Assigned Surgical Provider 09/21/23 documented as of this encounter
--- OUTSIDE RECORDS SUMMARY | 2024-04-26 07:45 | XMS_ITS | Encounter Summary ---
Author Organization [place] Address [address] [place] [address]. [place] [address] Care Team Providers Care Labor Expediter Name Role Phone Sera Hoffman PA-C Primary Care Provider Zara Ingram MD Unavailable Nuvia Jauregui PA-C Unavailable [phone] Reason for Visit * Reason Comments Orders Encounter Details Date Type Department Care Team (Late st Contact Info) Description 06/30/2023 Documentation Only [facility] [address] [facility] [address] [place] [address] Nuvia Jauregui PA-C [address] [place] [address] Orders Social History Tobacco Use Types Packs/Day Years [...] as of this encounter Progress Notes * Hadley Ulloa - 06/30/2023 10:56 AM CDT Zara Samuel has an upcoming lab appointment: Future Appointments Date Time Provider Department Center 07/03/2023 1:00 PM [facility] NURSE VESNA XIONG 07/04/2023 1:45 PM [facility] LAB [facility] 07/10/2023 2:30 PM [facility] NURSE VESNA XIONG 07/19/2023 2:30 PM Zara Ingram MD [facility] [place] [facility] Patient is scheduled for the following lab(s): 07/04/2023 There is no order available. Please review and place either future orders or HMPO (Review of HealthMaintenance Protocol Orders), as appropriate. Health Maintenance Due Topic ANNUAL REVIEW OF HM ORDERS HIV SCREENING HEPATITIS C SCREENING LIPID Hadley Ulloa documented in this encounter Plan of Treatment Upcoming Encounters Date Type Department Care Team (Late st Contact Info) Description 05/30/2024 7:30 AM CDT Therapy Visit [address] [address] Monica Murray, PT [address] [place] [address] 06/06/2024 8:10 AM CDT Therapy Visit [address] [address] Monica Murray, PT [address] [place] [address] 06/13/2024 8:10 AM CDT Therapy Visit [address] [address] Monica Murray, PT [address] [place] [address] 06/20/2024 8:10 AM CDT Therapy Visit [facility] [address] [facility] [address] [place] [address] [place] [address] [place] [address] 06/27/2024 8:10 AM CDT Therapy Visit [facility] [address] [facility] [address] [place] [address] [place] [address] [place], [place] [address] 08/09/2024 3:00 PM BICYCLE RENTAL CLERK Office Visit [facility] [place] [address] [facility] [address] [place] [phone] Nuvia Jauregui PA-C [address] [place] [address] documented as of this encounter Visit Diagnoses Not on filedocumented in this encounter Care Teams Labor Expediter Relationship Specialty Start Date End Date Sera Hoffman PA-C [facility] [address] [place] [address] PCP - General Physician Cushion Filler 04/11/23 Zara Ingram MD [address] [place] [address] [address] [place], [place] [address] Assigned Surgical Provider 07/22/23 09/20/23 Nuvia Jauregui PA-C [address] [place], [place] [address] Assigned Surgical Provider 09/21/23 documented as of this encounter
--- OUTSIDE RECORDS SUMMARY | 2024-04-26 07:45 | XMS_ITS | Encounter Summary ---
Author Organization [place] Address [address] [place] [address] Care Team Providers Care Training And Development Director Name Role Phone Sera Hoffman PA-C Primary Care Provider Nuvia Jauregui PA-C Unavailable [phone] Encounter Details Date Type Department Care Team (Latest Contact Info) Description 01/17/2024 Travel Social History Tobacco Use Types Packs/Day [...] Description 05/30/2024 7:30 AM CDT Therapy Visit [facility] [address] [facility] [address] [place] [address] [place] [address] [place] [address] 06/06/2024 8:10 AM CDT Therapy Visit [facility] [address] [address] Trevor Monica, PT [address] [place] [address] 06/13/2024 8:10 AM CDT Therapy Visit [address] [address] Trevor Monica, PT [address] [place] [address] 06/20/2024 8:10 AM CDT Therapy Visit [address] [address] Trevor Monica, PT [address] [place] [address] 06/27/2024 8:10 AM CDT Therapy Visit [address] [address] Trevor Monica, PT [address] [place] [address] 08/09/2024 3:00 PM COTTON FEEDER Office Visit [facility] [place] [address] [facility] [address] [place] [phone] Nuvia Jauregui PA-C [address] [place], [place] [address] documented as of this encounter Visit Diagnoses Not on filedocumented in this encounter Care Teams Training And Development Director Relationship Specialty Start Date End Date Sera Hoffman PA-C [facility] [address] [place] [address] PCP - General Physician Manager Environmental Affairs 04/11/23 Nuvia Jauregui, KOURTNEYC [address] [place], [place] [address] Assigned Surgical Provider 09/21/23 documented as of this encounter
--- OUTSIDE RECORDS SUMMARY | 2024-04-26 07:45 | XMS_ITS | Clinical Summary ---
Author Organization [place] Address [address] [place] [address] Care Team Providers Care Torpedo Man Name Role Phone Sera Hoffman PA-C Primary Care Provider Nuvia Jauregui PA-C Unavailable [phone] Allergies Active Allergy Reactions Criticality Noted Date [...] 09/22/2023 Dyspareunia, female 09/15/2023 Levator spasm 09/15/2023 Encounters Date Type Department Care Team Description 04/25/2024 2:30 PM CDT Office Visit [facility] [address] [place] [phone] Nuvia Jauregui PA-C Recurrent UTI (Primary Dx); Urinary retention; Incomplete bladder emptying; Constipation, unspecified constipation type; Pelvic floor dysfunction; Dyspareunia in female; Vaginal atrophy; Levator spasm 04/25/2024 Travel 04/20/2024 Travel 02/15/2024 Care Coordination [facility] [address] [place] [phone] Nuvia Jauregui PA-C Clinic Care Coordination - Follow-up ([facility] Follow Up) 02/07/2024 Care Coordination [facility] [address] [place] [phone] Nuvia Jauregui PA-C Clinic Care Coordination - Follow-up ([facility] Follow Up) from Last 3 Months Family History Medical History Relation Comments Cancer Father Cancer Mother Relation Status Comments Father Alive Mother Social History Tobacco Use Types Packs/Day Years [...] 05/30/2024 7:30 AM CDT Therapy Visit [address] [address] Monica Murray, PT [address] [place] [address] 06/06/2024 8:10 AM CDT Therapy Visit [address] [address] Monica Murray, PT [address] [place] [address] 06/13/2024 8:10 AM CDT Therapy Visit [address] [address] Monica Murray, PT [address] [place] [address] 06/20/2024 8:10 AM CDT Therapy Visit [address] [address] Monica Murray, PT [address] [place] [address] 06/27/2024 8:10 AM CDT Therapy Visit [address] [address] Monica Murray, PT [address] [place] [address] 08/09/2024 3:00 PM MACHINE SIGN WRITER Office Visit [facility] [place] [address] [place] [address] Nuvia Jauregui, PATracee [address] [place] [address] Health Maintenance Due Date Last Done Comments ADVANCE CARE PLANNING 1965 ANNUAL REVIEW OF HM ORDERS 1965 CT COLONOGRAPHY 1965 FIT 1965 FLEX SIG 1965 MAMMO SCREENING 1965 YEARLY PREVENTIVE VISIT 1965 sDNA (Cologuard) 1965 COLONOSCOPY 1975 COLORECTAL CANCER SCREENING 1975 HIV SCREENING 1980 HEPATITIS C SCREENING 1983 HEPATITIS B IMMUNIZATION (1 of 3 - 19+ 3-dose series) 1984 PAP 1986 LIPID 2005 LUNG CANCER SCREENING 2015 ZOSTER IMMUNIZATION (1 of 2) 2015 COVID-19 Vaccine ( season) 2023 INFLUENZA VACCINE (#1) 2024 3, 05/15/2013, 05/12/2013, Additional history exists GLUCOSE 07/04/2026 07/04/2023 DTAP/TDAP/TD IMMUNIZATION (4 - Td or Tdap) 04/10/2034 04/10/2024, 04/13/2014, 03/19/2009 PHQ-2 (once per calendar year) Completed 04/25/2024, 07/26/2023 HPV IMMUNIZATION Aged Out No longer e ligible based on patient's age to complete this topic MENINGITIS IMMUNIZATION Aged Out No l onger eligible based on patient's age to complete this topic Pneumococcal Vaccine: Pediatrics (0 to 5 Years) and At-Risk Patients (6 to 64 Years) Aged Out No longer eligible based on patient's age to complete this topic RSV MONOCLONAL ANTIBODY Aged Out No l onger eligible based on patient's age to complete this topic Procedures Procedure Name Priority Date/Time Associated Diagnosis Comments BASIC METABOLIC PANEL Routine 07/04/2023 2:08 PM MACHINE SIGN WRITER Recurrent UTI from Last 3 Months or Most Recently Relevant to Health Maintenance Results * Basic metabolic panel [LAB15] (07/04/2023 2:08 PM MACHINE SIGN WRITER) Sodium 141 135 - 145 mmol/L 07/04/2023 9:24 PM MACHINE SIGN WRITER [facility] Comment:Reference intervals for this test were updated on 05/23/2023 to more accurately reflect our healthy population. There may be differences in the flagging of prior results with similar values performed with this method. Interpretation of those prior results can be made in the context of the updated reference intervals. Potassium 3.9 3.4 - 5.3 mmol/L 07/04/2023 9:24 PM MACHINE SIGN WRITER [facility] Chloride 104 98 - 107 mmol/L 07/04/2023 9:24 PM MACHINE SIGN WRITER [facility] Carbon Dioxide (CO2) 26 22 - 29 mmol/L 07/04/2023 9:24 PM MACHINE SIGN WRITER [facility] Anion Gap 11 7 - 15 mmol/L 07/04/2023 9:24 PM MACHINE SIGN WRITER [facility] Urea Nitrogen 14.3 6.0 - 20.0 mg/dL 07/04/2023 9:24 PM MACHINE SIGN WRITER [facility] Creatinine 0.64 0.51 - 0.95 mg/dL 07/04/2023 9:24 PM MACHINE SIGN WRITER [facility] GFR Estimate >90 >60 mL/min/1. 73m2 07/04/2023 9:24 PM MACHINE SIGN WRITER [facility] Calcium 9.4 8.6 - 10.0 mg/dL 07/04/2023 9:24 PM MACHINE SIGN WRITER [facility] Glucose 90 70 - 99 mg/dL 07/04/2023 9:24 PM MACHINE SIGN WRITER [facility] Blood BLOOD SPECIMEN / Unknown Venipuncture / Unknown 07/04/2023 2:08 PM MACHINE SIGN WRITER 07/04/2023 2:08 PM MACHINE SIGN WRITER Nuvia Jauregui PA-C LAB - BLOOD [place] [facility] [address] [facility] [address], [address] [place] [address], [facility] [phone] from Last 3 Months or Most Recently Relevant to Health Maintenance Care Teams Torpedo Man Relationship Specialty Start Date End Date Sera Hoffman PA-C [facility] [address] [place] [address] PCP - General Physician Deli Associate 04/11/23 Nuvia Jauregui PA-C [address] [place] [address] Assigned Surgical Provider 09/21/23
--- OUTSIDE RECORDS SUMMARY | 2024-04-26 07:45 | XMS_ITS | Encounter Summary ---
Author Organization [place] Address [address] [place] [address]. [place] [address] Care Team Providers Care Race Relations Professor Name Role Phone Sera Hoffman PA-C Primary Care Provider Nuvia Jauregui PA-C Unavailable [phone] Reason for Visit * Reason Comments Clinic Care Coordination - Follow-up [facility] Follow Up Encounter Details Date Type Department Care Team (Late st Contact Info) Description 02/15/2024 Care Coordination [facility] [place] [address] [facility] [address] [place] [address] Nuvia Jauregui PA-C [address] [place], [place] [phone] Clinic Care Coordination - Follow-up ([facility]IC Follow [...] Description 05/30/2024 7:30 AM CDT Therapy Visit [address] [address] Monica Murray, PT [address] [place] [address] 06/06/2024 8:10 AM CDT Therapy Visit [address] [address] Monica Murray, PT [address] [place] [address] 06/13/2024 8:10 AM CDT Therapy Visit [address] [address] Monica Murray, PT [address] [place] [address] 06/20/2024 8:10 AM CDT Therapy Visit [address] [address] Monica Murray, PT [address] [place] [address] 06/27/2024 8:10 AM CDT Therapy Visit [address] [address] Monica Murray, PT [address] [place] [address] 08/09/2024 3:00 PM JEWELRY COATER Office Visit [facility] [place] [address] [facility] [address] [place] [address] Nuvia Jauregui PA-C [address] [place] [address] documented as of this encounter Visit Diagnoses Not on filedocumented in this encounter Care Teams Race Relations Professor Relationship Specialty Start Date End Date Sera Hoffman PA-C [facility] [address] [place] [address] PCP - General Physician Microbiology Laboratory Manager 04/11/23 Nuvia Jauregui PA-C [address] [place], [place] [address] Assigned Surgical Provider 09/21/23 documented as of this encounter
--- OUTSIDE RECORDS SUMMARY | 2024-04-26 07:46 | XMS_ITS | Continuity of Care Document ---
Author Name [facility] Organization [facility] Care Team Providers Care Elevator Tender Name Role Phone [facility] Unavailable Unavailable Medications Combined list of outpatient medications from Department of Defense and Veterans Affairs facilities.Medications provided include 1) outpatient medications from the last 15 months, and 2) patient-reported medications. Medication Details Route Status Patient Instructions Prescription Expires Prescription Number Last Dispense Date Ordering Provider Order Date Order Qty Source CEPHALEXIN (CEPHALEXIN MONOHYDRATE ), 500MG, CAPSULE, ORAL, TEVA [place], 500 ea. BOTTLE Active [id number] 4 2023 14 Pharmac y Data Transac tion Service Facilit y NITROFURANT OIN MONO-MACRO (NITROFURAN TOIN MONOHYD/M-C RYST), 100 MG, CAPSULE, ORAL, ALVOGEN INC, 100 ea. BOTTLE Active [id number] 4 2023 14 Pharmac y Data Transac tion Service Facilit y SULFAMETHOX AZOLE-TRIME THOPRIM (SULFAMETHO XAZOLE/TRIM ETHOPRIM), 800-160MG, TABLET, ORAL, AUROBINDO PHARM, 500 ea. BOTTLE Active [id number] 4 2023 14 Pharmac y Data Transac tion Service Facilit y SULFAMETHOX AZOLE-TRIME THOPRIM (SULFAMETHO XAZOLE/TRIM ETHOPRIM), 800-160MG, TABLET, ORAL, AUROBINDO PHARM, 500 ea. BOTTLE Active [id number] 4 2023 14 Pharmac y Data Transac tion Service Facilit y Immunizations Combined list of available immunizations from the Department of Defense and Veterans Affairs facilities. Immunization Series Date Given Administered By Site Reaction Lot Number CVX Code Drug Clinical Document Improvement Educator Status Comments Source INFLUENZA, UNSPECIFIED FORMULATION 2010 88 complet ed [place] [facility] Social History Combined list of available smoking, tobacco, and other social history from Department of Defense and Veterans Affairs facilities. Social History Type Response Date Comment Sourc e This section is an empty social history section. [employer]
--- OUTSIDE RECORDS SUMMARY | 2024-04-26 07:46 | XMS_ITS | Clinical Summary ---
Author Organization [facility] Address [address] [place] [address] Care Team Providers Care Commercial Insulator Name Role Phone John Ospina MD Primary Care Provider [phone] Source Comments You are receiving this document as you are listed as the primary care provider,follow-up provider, or the patient has been referred to you for consultation.This is in compliance with the Medicare andMedicaid EHR Incentive Program,which states Providers who transition their patient to another setting of careor provider of care or refers their patient to another provider of care shouldprovide summary care record for each transition of care or referral. [email or web address] Allergies Active Allergy Reactions Criticality Noted Date Comments Simvastatin Myalgias 03/19/2009 Medications Medication Sig Dispensed Refills Start Date End Date Status Multiple Vitamins-Minerals (MULTIVITAMIN OR) Take 1 tablet by mouth daily (every 24 hours). 100 13 03/19/2009 Active traZODone (AKA DESYREL) 50 MG tabletIndications:Ins omnia Take 1 tablet by mouth nightly. 90 tablet 3 04/10/2013 Active amphetamine-dextroamp hetamine (ADDERALL) 20 MG tablet Take 20 mg by mouth two times a day. 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 Overview (04/19/2017): LW Modifier: on control pills LW Onset: age 23 ; Deep Venous Thrombosis Resolved Problems Problem Noted Date Diagnosed Date Resolved Date delivery delivered 03/19/2009 04/10/2013 Overview (04/19/2017): LW Onset: ; Delivery Encounter for sterilization 03/19/2009 04/10/2013 Overview (04/19/2017): LW Onset: X2 ; Tubal Ligation Elective Umbilical hernia 03/19/2009 04/10/2013 Overview (04/19/2017): LW Modifier: s/p repair LW Onset: age 7 ; Hernia Umbilical Immunizations Name Administration Dates Next Due Flu Vac Preserv Free (3+yrs) 06/06/2008 Influenza IIV4 (Quadrivalent) 0.5mL (76897) 04/28 TDAP (BOOSTRIX) 03/19/2009 Tdap 04/13/2014 Family History Medical History Relation Name Comments Coronary Artery Disease Father Coronary Artery Disease Mother Rheum Arthritis Sister Relation Name Status Comments Father Mother Sister Social History Tobacco Use Types Packs/Day Years Used Date Smoking Tobacco: Former Cigarettes Smokeless Tobacco: Never Comments:Quit smoking: Alcohol Use Standard Drinks/Week Comments No 0 (1 standard drink = 0.6 oz pur e alcohol) Sex and Gender Information Value Date Recorded Sex Assigned at Not on file Gender Identity Not on file Sexual Orientation Not on file Last Filed Vital Signs Vital Sign Reading Time Taken Comments Blood Pressure 118/74 12/12/2013 11:12 AM CDT Pulse 72 12/12/2013 11:12 AM CDT Temperature 36.9 ??C (98.4 ??F) 09/02/2013 1:08 PM CS T Respiratory Rate 20 05/28/2013 8:04 AM CDT Oxygen Saturation 100% 10/09/2009 6:31 PM INSTRUCTIONAL SUPPORT ASSISTANT Inhaled Oxygen Concentration - - Weight 67.6 kg (149 lb) 12/12/2013 11:12 AM CDT Height 160 cm (5' 3) 05/28/2013 8:04 AM CDT Body Mass Index 26.39 05/28/2013 8:04 AM CDT Plan of Treatment Health Maintenance Due Date Last Done Comments Colon Cancer Screening Plan Due 1965 Hep C Screening (Preventive Services) 1965 Mammogram 1965 HIV Screening (Preventive Services) 1981 Adult Preventive Visit 1983 HepB (1) 1984 Cervical Cancer Screening Due 02/24/2012, 07/08/2009, 06/06/2008 Zoster/Shingles (1 of 2) 2015 Cholesterol 06/28/2017 06/28/2012, 05/14/2009 COVID-19 Vaccine (1 - 2022-2 4 season) 2023 DTaP/Tdap/Td (3 - Tdap) 04/13/2024 04/13/20 14, 03/19/2009 Influenza (#1) 2024 05/15/2013, 05/12/2013, 06/06/2008 HepA Aged Out No longer eligi ble based on patient's age to complete this topic Hib Aged Out No longer eligi ble based on patient's age to complete this topic IPV (Polio) Aged Out No longer eligi ble based on patient's age to complete this topic MCV4 Aged Out No longer eligi ble based on patient's age to complete this topic Pneumococcal Aged Out No longer eligi ble based on patient's age to complete this topic Procedures Procedure Name Priority Date/Time Associated Diagnosis Comments LIPID PANEL & DIRECT LDL (IF NEEDED) Routine 06/28/2012 8:14 AM CDT Screening cholesterol level ANATOMICAL PATH LIQUID BASED Routine 02/23/2012 11:52 AM CDT from Last 3 Months or Most Recently Relevant to Health Maintenance Results * Lipid Panel and Direct LDL(If Needed) (06/28/2012 8:14 AM CDT) Cholesterol 169 0 - 200 mg/dL HP CONVERSION Triglycerides 75 0 - 149 mg/dL HP CONVERSION HDL Cholesterol 63 >39 mg/dL HP CONVERSION Cholesterol/HDL Ratio Screen 2.7 HP CONVERSION LDL Calculated 91 19 - 130 mg/dL HP CONVERSION Hours Fasting 10.0 HP CONVERSION 06/28/2012 8:14 AM CDT 06/28/2012 11:38 AM CDT Narrative HP CONVERSION - 06/28/2012 12:02 PM CDT Performed at [facility], [address] [place] [address] John Ospina MD LAB_1 Performing Organization Address [facility] de Phone Number HP CONVERSION * Pap Smear (02/23/2012 11:52 AM CDT) 02/23/2012 11:5 2 AM CDT Narrative HP CONVERSION - 02/28/2012 1:05 PM CDT Final GYNECOLOGICAL CYTOLOGY REPORT Pathology #: [id number] ?Date Obtained: 02/23/2012 ? Date Received: 02/24/2012 INTERPRETATION/RESULTS: Negative for Intraepithelial Lesion or Malignancy SPECIMEN ADEQUACY: Satisfactory for Evaluation. ??No endocervical cells/transformation zone component present. Verified on 02/28/2012 ??by NICOLE MITCHELL(ASCP) (electronic signature) CLINICAL NOTES: ? LMP: 02/21/12. LIQUID BASED PAP SMEAR SPECIMEN TYPE: ?CERVICAL WITH REFLEX TO HPV IF ASCUS PLEASE NOTE: The pap smear is a screening test designed to aid in the detection of cervical cancer and its precursor lesions. It is not a diagnostic procedure and should not be used as the sole means of detecting cervical cancer. Both false-positive and false-negative reports may occur. ? End of Report Wilberto Draper MD LAB_1 Performing Organization Address [facility] de Phone Number HP CONVERSION from Last 3 Months or Most Recently Relevant to Health Maintenance Care Teams Commercial Insulator Relationship Specialty Start Date End Date John Ospina MD [address] [place] [address] PCP - General 09/02/13
--- OUTSIDE RECORDS SUMMARY | 2024-04-26 07:46 | XMS_ITS | Clinical Summary ---
Author Organization [facility] Address [place], [place] [address] Care Team Providers Care Field Staff Manager Name Role Phone Gm Ribeiro PA-C Primary Care Provider [phone] Allergies Active Allergy Reactions Criticality Noted Date Comments Simvastatin Myalgia 06/03/2013 Medications Medication Sig Dispensed Refills Start Date End Date Status dextroamphetamine-ampheta mine (ADDERALL) 20 mg tablet 07/06/2015 Active citalopram (CELEXA) 20 mg tablet 11/03/2020 Active acetaminophen (TylenoL) 325 mg cap Take by mouth. 0 11/04/2021 Active Active Problems Problem Noted Date Diagnosed Date Hematometra 06/03/2013 Pelvic pain 06/03/2013 Immunizations Name Administration Dates Next Due Influenza Virus, Unspecified 05/04/2011 Influenza, IIV3 (Age >=3 years) 05/12/2013,06/06 Influenza, IIV4 05/15/2013 Influenza, IIV4 (Age 6-35 Mos) 05/15/2013 Tdap 04/13/2014,03/19/2009 Family History Medical History Relation Name Comments Cancer-prostate Father Heart Disease Father CAD Good Health Mother Heart Disease Mother CAD Cancer-prostate Paternal Uncle 1 Cancer-prostate Paternal Uncle 2 Cancer-prostate Paternal Uncle 3 Cancer-prostate Paternal Uncle 4 Cancer-prostate Paternal Uncle 5 Cancer-breast No Family History Cancer-colon No Family History Cancer-ovarian No Family History Relation Name Status Comments Father Mother Paternal Uncle 1 Paternal Uncle 2 Paternal Uncle 3 Paternal Uncle 4 Paternal Uncle 5 Social History Tobacco Use Types Packs/Day Years Used Date Smoking Tobacco: Former Cigarettes Smokeless Tobacco: Never Alcohol Use Standard Drinks/Week Comments No 0 (1 standard drink = 0.6 oz pur e alcohol) Social Connections Answer Date Recorded Frequency of Communication with Friends and Fami ly Not on file 08/28/2021 Financial Resource Strain Answer Date R ecorded Difficulty of Paying Living Expenses Not on file 08/28/2021 Difficulty of Paying Living Expenses Not on file 08/28/2021 Sex and Gender Information Value Date Recorded Sex Assigned at Female 12/13/2020 11:51 PM CDT Gender Identity Female 12/13/2020 11:51 PM CDT Sexual Orientation Straight 12/13/2020 11 :51 PM CDT Obstetrics History Last Filed Vital Signs Vital Sign Reading Time Taken Comments Blood Pressure 136/85 11/04/2021 8:55 AM DROP PRESS HAND Pulse 88 11/04/2021 8:55 AM DROP PRESS HAND Temperature 36.8 ??C (98.2 ??F) 11/04/2021 8 :55 AM DROP PRESS HAND Respiratory Rate 16 06/11/2013 9:04 AM CDT Oxygen Saturation 99% 06/11/2013 9:0 6 AM CDT Inhaled Oxygen Concentration - - Weight 65.8 kg (145 lb) 04/28/2022 4:06 PM CDT Pt. reported TB 04-28-2022 Height 160 cm (5' 3) 04/28/2022 4:06 PM CDT Pt. reported TB 04-28-2022 Body Mass Index 25.69 04/28/2022 4:06 PM CDT Plan of Treatment Upcoming Encounters Date Type Department Care Team (Late st Contact Info) Description 04/26/2024 8:00 AM CDT Ancillary Procedure [facility] [address] [place] [address] Health Maintenance Due Date Last Done Comments Depression screening for age 12+ 1977 HIV for age 15-65 1980 Hepatitis C screening for age 18-79 1983 Pap test for age 21-65 1986 Colonoscopy through age 75 2010 Lipids for age 45-75 2010 Mammogram for age 45-75 09/21/2012 09/21/2011, 08/26 Zoster (shingles) series for age 50+ (1 of 2) 2015 BMI (ht and wt on same day) for age 18+ 04/28/2023 04/28/2022, 11/04/2021 COVID-19 vaccine series (2022-24 season) 2023 Tetanus booster 04/13/2024 04/13/2014, 03/19/2009 Influenza for age 50-64 04/28/2024 05/15/20 13, 05/12/2013, 05/04/2011, Additional history exists Tdap Completed 04/13/2014, 03/19/2009 Pneumococcal series for age 6-64 Aged Out No longer eligible based on patient's age to complete this topic Procedures Procedure Name Priority Date/Time Associated Diagnosis Comments XR MAMMO BILAT SCREEN FFDM (IA) Routine 09/21/2011 9:42 AM DROP PRESS HAND Other screening mammogram from Last 3 Months or Most Recently Relevant to Health Maintenance Results * XR MAMMO BILAT SCREEN FFDM (09/21/2011 9:42 AM DROP PRESS HAND) Anatomical Region Laterality Modality BREASTS, Breast Left, Breast Right Bilateral Mammography Impressions 09/21/2011 10:02 AM DROP PRESS HAND ??There is no radiographic evidence for malignancy. ??Recommend annual mammograms. A lay language report of this examination will be provided to the patient. MAMMOGRAM ASSESSMENT: ??ACR 2 Benign Narrative 09/21/2011 10:02 AM DROP PRESS HAND XR MAMMO BILAT SCREEN FFDM [G0202.0] CLINICAL HISTORY: ??This is an asymptomatic 46 y.o. patient. INDICATION FOR EXAM: Mammogram Screening. TECHNIQUE: CC & MLO views were obtained. ??This digital study was evaluated with the assistance of Computer-Aided Detection. ?? COMPARISON FILMS: Yes 08/26/10 [facility] FINDINGS: ??Mammographically, the breast tissue is heterogeneously dense, which could obscure detection of small masses (approximately 51% - 75% glandular). ??No suspicious masses or microcalcifications. ??Benign appearing calcifications within both breasts. Procedure Note Carrie Lew MD - 09/21/2011 XR MAMMO BILAT SCREEN FFDM [G0202.0] CLINICAL HISTORY: This is an asymptomatic 46 y.o. patient. INDICATION FOR EXAM: Mammogram Screening. TECHNIQUE: CC & MLO views were obtained. This digital study was evaluatedwith the assistance of Computer-Aided Detection. COMPARISON FILMS: Yes 08/26/10 [facility] FINDINGS: Mammographically, the breast tissue is heterogeneously dense,which could obscure detection of small masses (approximately 51% - 75%glandular). No suspicious masses or microcalcifications. Benignappearing calcifications within both breasts. IMPRESSION: There is no radiographic evidence for malignancy. Recommendannual mammograms. A lay language report of this examination will be provided to the patient. MAMMOGRAM ASSESSMENT: ACR 2 Benign Wilberto Draper MD MAMMO from Last 3 Months or Most Recently Relevant to Health Maintenance Advance Directives * Full Code (Latest Code Status on File) Date Activated Date Inactivated Comments 06/10/2013 8:50 AM 06/11/2013 12:28 PM * Full Code Date Activated Date Inactivated Comments 06/10/2013 6:15 AM 06/10/2013 8:50 AM Care Teams Field Staff Manager Relationship Specialty Start Date End Date Gm Ribeiro PA-C [address] [place] [address] PCP - General Physician Loader Operator 07/01/20
--- OUTSIDE RECORDS SUMMARY | 2024-04-26 07:46 | XMS_ITS | Encounter Summary ---
Author Organization [facility] Address [address] [place] [address]. [place] [address] Care Team Providers Care Executive Business Coach Name Role Phone Sera Hoffman PA-C Primary Care Provider Zara Ingram MD Unavailable [phone] Nuvia Jauregui PA-C Unavailable [phone] Encounter Details Date Type Department Care Team (Late st Contact Info) Description 06/29/2023 Telephone [facility] [place] [address] [facility] [address] [place] [address] Nuvia Jauregui PA-C [address] [place] [address] Social History Tobacco Use Types [...] Orientation Straight 05/29/2023 5: 20 PM CDT COVID-19 Exposure Response Date Recorded In the last 10 days, have yo u been in contact with someone who was confirmed or suspected to have Coronavirus/COVID-19? No / Unsure 05/30/2023 7:58 AM CDT documented as of this encounter Miscellaneous Notes * Telephone Encounter - Kristofer Buffy - 06/29/2023 12:04 PM CDT [facility] Call Center Phone Message May a detailed message be left on voicemail: yes Reason for Call: Other: pt called and stated that she missed a call from [facility] - please call pt to further discuss, thanks! Action Taken: Other: Uro Travel Screening: Not Applicable documented in this encounter Plan of Treatment Upcoming Encounters Date Type Department Care Team (Late st Contact Info) Description 05/30/2024 7:30 AM CDT Therapy Visit [address] [address] Monica Murray, PT [address] [place] [address] 06/06/2024 8:10 AM CDT Therapy Visit [address] [address] Monica Murray, PT [address] [place] [address] 06/13/2024 8:10 AM CDT Therapy Visit [address] [address] Monica Murray, PT [address] [place] [address] 06/20/2024 8:10 AM CDT Therapy Visit [address] [address] Monica Murray, PT [address] [place] [address] 06/27/2024 8:10 AM CDT Therapy Visit [facility] [address] [facility] [address] [place] [address] Trevor MonicaINES greer [address] [place] [address] 08/09/2024 3:00 PM ASSOCIATE PROFESSOR OF MEDICINE Office Visit [facility] [place] [address] [facility] [address] [place] [phone] Nuvia Jauregui PA-C [address] [place], [place] [phone] documented as of this encounter Visit Diagnoses Not on filedocumented in this encounter Care Teams Executive Business Coach Relationship Specialty Start Date End Date Sera Hoffman PA-C [facility] [address] [place] [address] PCP - General Physician Cuff Stitcher 04/11/23 Zara Ingram MD [address] [place] [address] [address] [place], [place] [address] Assigned Surgical Provider 07/22/23 09/20/23 Nuvia Jauregui PA-C [address] [place], [place] [address] Assigned Surgical Provider 09/21/23 documented as of this encounter
== END 2024-04-26 07:43 | disposition home or self-care (01) ==
LOC: RAD 07:42
PROVIDERS: PCP Physician Assistant Medical; Visit Provider Physician Assistant Medical
DX: R00.2 Palpitations (principal); I35.1 Nonrheumatic aortic (valve) insufficiency; I34.0 Nonrheumatic mitral (valve) insufficiency; I07.1 Rheumatic tricuspid insufficiency
CPT/HCPCS: 93306

== ENCOUNTER 2024-06-18 14:56 | Outpatient (CLI) | payer OTHER, SELFPAY ==
--- OUTSIDE RECORDS SUMMARY | 2024-06-18 14:59 | XMS_ITS | Encounter Summary ---
Author Organization [facility] Address [address] [place] [address] Care Team Providers Care Instructor Of Education Name Role Phone Sera Hoffman PA-C Primary Care Provider Nuvia Jauregui PA-C Unavailable [phone] Reason for Visit * Rehab Therapy Integrated Services - Authorized Specialty Diagnoses / Procedures Referred By Nguyen hollingsworth Referred To Contact Diagnoses Dyspareunia in female Levator spasm Pelvic floor dysfunction [address] [address] Referral ID Status Reason Start Date Expiration Date V isits Requested Visits Authorized [id number] Authorized 08/14/2023 08/27/2024 365 365 Encounter Details Date Type Department Care Team (Latest Contact Info) Description 06/13/2024 8:10 AM CDT Therapy Visit [facility] [address] [facility] [address] [place] [phone] [place] [address] [place] [address] Levator spasm (Primary Dx); Dyspareunia in female; Pelvic floor dysfunction Social History Tobacco Use Types Packs/Day Years Used Date Smoking Tobacco: Former Cigarettes Passive Smoke Exposure: Never Smokeless Tobacco: Never Alcohol Use Standard Drinks/Week Comments Yes 0 (1 standard drink = 0.6 oz pur e alcohol) PHQ-2 Answer Date Recorded PHQ-2 Score 0 04/25/2024 Adolescent Education Answer Date Record ed Getting School Help Needed Not on file 05/30 Interpersonal Safety Answer Date Record ed Do you feel physically and e motionally safe where you currently live? Yes 05/30/2024 Within the past 12 months, h ave you been hit, slapped, kicked or otherwise physically hurt by someone? No 05/30/2024 Within the past 12 months, h ave you been humiliated or emotionally abused in other ways by your partner or ex-partner? No 05/30/2024 Sex and Gender Information Value Date Recorded Sex Assigned at Female 05/29/2023 5:20 PM CDT Gender Identity Female 05/29/2023 5:20 PM CDT Sexual Orientation Straight 05/29/2023 5: 20 PM CDT documented as of this encounter Plan of Treatment Upcoming Encounters Date Type Department Care Team (Late st Contact Info) Description 06/20/2024 8:10 AM CDT Therapy Visit [address] [phone] [place] [address] [place] [address] 06/27/2024 8:10 AM CDT Therapy Visit [facility] [address] [place] [phone] [place] [address] [place] [address] 08/09/2024 3:00 PM CLOUD CONSULTANT Office Visit [facility] [place] [address] [facility] [address] [place] [phone] Nuvia Jauregui PA-C [address] [place] [address] documented as of this encounter Visit Diagnoses Diagnosis Levator spasm- Primary Abnormal involuntary movements Dyspareunia in female Pelvic floor dysfunction Pelvic muscle wasting documented in this encounter Care Teams Instructor Of Education Relationship Specialty Start Date End Date Sera Hoffman PA-C [facility] [address] [place] [address] PCP - General Physician Nick Setter 04/11/23 Nuvia Jauregui PA-C [address] [place] [address] Assigned Surgical Provider 09/21/23 documented as of this encounter
--- OUTSIDE RECORDS SUMMARY | 2024-06-18 14:59 | XMS_ITS | Encounter Summary ---
Author Organization [facility] Address [address] [place] [address]. [place] [address] Care Team Providers Care Oracle Programmer Name Role Phone Sera Hoffman PA-C Primary Care Provider Nuvia Jauregui PA-C Unavailable [phone] Encounter Details Date Type Department Care Team (Latest Contact Info) Description 06/13/2024 Travel Social History Tobacco Use Types Packs/Day [...] Description 06/20/2024 8:10 AM CDT Therapy Visit [facility] [address] [facility] [address] [place] [phone] [place] [address] [place] [address] 06/27/2024 8:10 AM CDT Therapy Visit [facility] [address] [facility] [address] [place] [phone] [place] [address] [place] [address] 08/09/2024 3:00 PM NURSE GYNECOLOGY Office Visit [facility] [address] [facility] [address] [place] [phone] Nuvia Jauregui PA-C [address] [place] [address] documented as of this encounter Visit Diagnoses Not on filedocumented in this encounter Care Teams Oracle Programmer Relationship Specialty Start Date End Date Sera Hoffman PA-C [facility] [address] [place] [address] PCP - General Physician Apartment Assistant Manager 04/11/23 Nuvia Jauregui PA-C [address] [place] [address] Assigned Surgical Provider 09/21/23 documented as of this encounter
--- OUTSIDE RECORDS SUMMARY | 2024-06-18 14:59 | XMS_ITS | Encounter Summary ---
Author Organization [place] Address [address] [place] [address] Care Team Providers Care Funeral Location Manager Name Role Phone Sera Hoffman PA-C Primary Care Provider Nuvia Jauregui PA-C Unavailable Reason for Visit * Rehab Therapy Integrated Services - Authorized Specialty Diagnoses / Procedures Referred By Nguyen hollingsworth Referred To Contact Diagnoses Dyspareunia in female Levator spasm Pelvic floor dysfunction [address] [address] Referral ID Status Reason Start Date Expiration Date V isits Requested Visits Authorized [id number] Authorized 08/14/2023 08/27/2024 365 365 Encounter Details Date Type Department Care Team (Latest Contact Info) Description 05/30/2024 7:30 AM CDT Therapy Visit [facility] [address] [place] [phone] [place] [address] [place] [address] Dyspareunia in female (Primary Dx); Levator spasm; Pelvic floor dysfunction Social History Tobacco Use [...] as of this encounter Progress Notes * Monica Murray, PT - 05/30/2024 7:30 AM CDT PHYSICAL THERAPY EVALUATION Type of Visit: Evaluation Fall Risk Screen: Fall screen completed by: PT Have you fallen 2 or more times in the past year?: No Have you fallen and had an injury in the past year?: No Timed Up and Go score (seconds): No Is patient a fall risk?: No Fall screen comments: No Subjective Presenting condition or subjective complaint: Recuring UTI's Date of onset: 09/15/23 Relevant medical history: Anemia; Arthritis; Bladder or bowel problems; Dizziness; DVT (blood clot); Menopause; Neck injury; Osteoarthritis; Pain at night or rest; Smoking Dates & types of surgery: Prior diagnostic imaging/testing results: MRI; CT scan; Other Cystoscopy Prior therapy history for the same diagnosis, illness or injury: Yes Pelvic Floor Therapy October 2023 Living Environment Social support: With a significant other or spouse Type of home: House; 2-story; Basement Stairs to enter the home: Yes 2 Is there a railing: No Ramp: No Stairs inside the home: Yes 32 Is there a railing: Yes Help at home: None Equipment owned: 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 Hobbies/Interests: Reading, bird watching, plants Patient goals for therapy: Get back to a normal life Objective PELVIC EVALUATION ADDITIONAL HISTORY: Sex assigned at : Female Gender identity: Female Pronouns: Bladder History: Feels bladder filling: Yes Triggers for feeling of inability to wait to go to the bathroom: No How long can you wait to urinate: 20-30 min Gets up at night to urinate: Yes 1 Can stop the flow of urine when urinating: Yes Volume of urine usually released: Average Other issues: Straining to pass urine; Slow or hesitant urine stream; Trouble emptying bladder completely; Dribbling after urinating; Bladder infections Number of bladder infections in last 12 months: 5 Fluid intake per day: 32 oz 16oz Medications taken for bladder: Yes Hipprex Activities causing urine leak: Hurrying to the bathroom due to a strong urge to urinate (pee) Amount of urine typically leaked: Small Pads used to help with leaking: No Bowel History: Frequency of bowel movement: 1-2 times 4-5 times a week Consistency of stool: Soft-formed Ignores the urge to defecate: Sometimes Other bowel issues: Pain when pooping; Straining to have bowel movement Length of time spent trying to have a bowel movement: 15 min Sexual Function History: Sexual orientation: Straight Sexually active: No Lubrication used: Yes Yes Pelvic pain: Sitting; Deep penetration (rectal or vaginal) Pain or difficulty with orgasms/erection/ejaculation: No State of menopause: Post-menopause (I am done with menopause) Hormone medications: No Are you currently : No Number of previous pregnancies: 4 Number of deliveries: 4 If you have delivered before, did you have any of these issues during delivery: Tearing; Episiotomy; delivery; Vaginal delivery Have you been diagnosed with pelvic prolapse or abdominal separation: No Do you get regular exercise: No Have you tried pelvic floor strengthening exercises for 4 weeks: Yes Do you have any history of trauma that is relevant to your care that you???d like to share: No Discussed reason for referral regarding pelvic health needs and external/internal pelvic floor muscle examination with patient/guardian. Opportunity provided to ask questions and verbal consent for assessment and intervention was given. Continued stretches/abdominal massage. Had been self-cathing 3 x per day, now down to 1 x per day 2/2 high PVR. PAIN: Pain is Exacerbated By: UTIs, pelvic exams POSTURE: WFL LUMBAR SCREEN: AROM WFL HIP SCREEN: Strength: 3+/5 hip abd and hip extension bilaterally PELVIC/SI SCREEN: BREATHING SYMMETRY: WNL PELVIC EXAM Integumentary: Introitus: dryness Internal Digital Palpation: Per Vagina: Myofascial Resistance to Palpation: Firm Digital Muscle Performance: P (Power): 2/5 Pelvic Organ Prolapse: Apical: At the level of the hymen BIOFEEDBACK: Position: Supine, Sit Surface Electrodes: Perineal Perianals: Baseline muscle activity: .1 supine, 3 seated microvolts Peak Amplitude/MVC: 7 seated microvolts Decreased seated to 0.1uV seated w/ lean forward and contract/relax Assessment & Plan CLINICAL IMPRESSIONS Medical Diagnosis: Dyspareunia in female Levator spasm Pelvic floor dysfunction Treatment Diagnosis: Pelvic Floor Weakness Impression/Assessment: Patient is a 59 year old female with recurrent UTIs and pelvic pain complaints. The following significant findings have been identified: Decreased ROM/flexibility, Decreased strength, Impaired muscle performance, and Decreased activity tolerance. These impairments interfere with their ability to perform self care tasks, work tasks, household mobility, and community mobility as compared to previous level of function. Clinical Decision Making (Complexity): Clinical Presentation: Stable/Uncomplicated Clinical Presentation Rationale: based on medical and personal factors listed in PT evaluation Clinical Decision Making (Complexity): Low complexity PLAN OF CARE Treatment Interventions: Modalities: Biofeedback Interventions: Manual Therapy, Neuromuscular Re-education, Therapeutic Activity, Therapeutic Exercise, Self-Care/Home Management Automotive Brake Technician Goals PT Goal 1 Goal Identifier: Goal 1 Goal Description: The patient will report having 0/10 pain when voiding, and 0 UTIs for 4 consecutive weeks, in order to promote continence, skin activity, and free movement in the community Rationale: to maximize safety and independence with performance of ADLs and functional tasks;to maximize safety and independence with self cares;to maximize safety and independence within the community Target Date: 08/22/24 PT Goal 2 Goal Identifier: Goal 2 Goal Description: The patient will be able to verbalize and demonstrate 2 effective pain managementstrategies in order to promote independence with self- care and full activity participation. Rationale: to maximize safety and independence with self cares Target Date: 08/22/24 Frequency of Treatment: 1 x per week Duration of Treatment: 12 weeks Education Assessment: Learner/Method: Patient;Pictures/Video;No Barriers to Learning;Demonstration;Listening;Reading Risks and benefits of evaluation/treatment have been explained. Patient/Family/caregiver agrees with Plan of Care. Evaluation Time: PT Jax Ugarte Minutes ([id number]): 7 Signing Clinician: Monica Murray PT documented in this encounter Plan of Treatment Upcoming Encounters Date Type Department Care Team (Late st Contact Info) Description 06/20/2024 8:10 AM CDT Therapy Visit [facility] [address] [place] [phone] [place] [address] [place], [place] [address]857 06/27/2024 8:10 AM CDT Therapy Visit [address] [place] [phone] Monica Murray [place] [id number] [place] [address]707 08/09/2024 3:00 PM VENETIAN BLIND WASHER Office Visit [facility] [address] [place] [phone] Nuvia Jauregui PA-C [address] [place], [place] [address] documented as of this encounter Visit Diagnoses Diagnosis Dyspareunia in female- Primary Levator spasm Abnormal involuntary movements Pelvic floor dysfunction Pelvic muscle wasting documented in this encounter Care Teams Funeral Location Manager Relationship Specialty Start Date End Date Sera Hoffman PA-C [facility] [address] [place] [address] PCP - General Physician Critical Care Transport Nurse 04/11/23 Nuvia Jauregui PA-C [address] [place], [place] [phone] Assigned Surgical Provider 09/21/23 documented as of this encounter
--- OUTSIDE RECORDS SUMMARY | 2024-06-18 14:59 | XMS_ITS | Encounter Summary ---
Author Organization [facility] Address [address] [place] [address] Care Team Providers Care Costume Draper Name Role Phone Sera Hoffman PA-C Primary Care Provider Nuvia Jauregui PA-C Unavailable [phone] Encounter Details Date Type Department Care Team [...] Description 06/20/2024 8:10 AM CDT Therapy Visit [facility] [address] [place] [phone] [place] [address] [place] [address] 06/27/2024 8:10 AM CDT Therapy Visit [facility] [address] [place] [address] Trevor MonicaINES [address] [place], [place] [address]527 08/09/2024 3:00 PM INTERNET MARKETING CONSULTANT Office Visit [facility] [place] [address] [place] [phone] Nuvia Jauregui PA-C [address] [place], [place] [address] documented as of this encounter Visit Diagnoses Not on filedocumented in this encounter Care Teams Costume Draper Relationship Specialty Start Date End Date Sera Hoffman PA-C [facility] [address] [place] [address] PCP - General Physician Waste Water Treatment Plant Operator 04/11/23 Nuvia Jauregui PA-C [address] [place], [place] [id number] Assigned Surgical Provider 09/21/23 documented as of this encounter
--- OUTSIDE RECORDS SUMMARY | 2024-06-18 14:59 | XMS_ITS | Encounter Summary ---
Author Organization [facility] Address [address] [place] [address]. [place] [address] Care Team Providers Care Optometry Assistant Name Role Phone Sera Hoffman PA-C Primary Care Provider Nuvia Jauregui PA-C Unavailable [phone] Encounter Details Date Type Department Care Team (Latest Contact Info) Description 05/29/2024 Travel Social History Tobacco Use Types Packs/Day [...] Description 06/20/2024 8:10 AM CDT Therapy Visit [facility] [address] [place] [phone] [place] [address] [place] [address] 06/27/2024 8:10 AM CDT Therapy Visit [facility] [address] [place] [phone] [place] [address] [place] [address] 08/09/2024 3:00 PM AGENCY APPOINTMENTS SUPERVISOR Office Visit [facility] [place] [address] [facility] [address] [place] [phone] Nuvia Jauregui PA-C [address] [place] [address] documented as of this encounter Visit Diagnoses Not on filedocumented in this encounter Care Teams Optometry Assistant Relationship Specialty Start Date End Date Sera Hoffman PA-C [facility] [address] [place] [address] PCP - General Physician Automotive Sales Specialist 04/11/23 Nuvia Jauregui PA-C [address] [place] [address] Assigned Surgical Provider 09/21/23 documented as of this encounter
--- OUTSIDE RECORDS SUMMARY | 2024-06-18 14:59 | XMS_ITS | Encounter Summary ---
Author Organization [facility] Address [address] [place] [address]. [place] [address] Care Team Providers Care Boilermaker Assembly And Erection Name Role Phone Sera Hoffman PA-C Primary Care Provider Nuvia Jauregui PA-C Unavailable [phone] Reason for Visit * Reason Comments Recurrent UTI's 3 month follow up Encounter Details Date Type Department Care Team (Late st Contact Info) Description 04/25/2024 2:30 PM CDT Office Visit [facility] [address] [place] [address] Nuvia Jauregui PA-C [address] [place], [place] [address] Recurrent UTI (Primary Dx); Urinary retention; Incomplete [...] We have been following 59 year old Zara Samuel for Carlo, dyspareunia, [...] Hoffman PA-C as PCP - General (Physician Orthopedic Dentist) Nuvia Jauregui PA-C as Assigned Surgical Provider [...] Description 06/20/2024 8:10 AM CDT Therapy Visit [address] [place] [phone] Monica Murray, PT [address] [place] [address] 06/27/2024 8:10 AM CDT Therapy Visit [address] [phone] Monica Murray, PT [address] [place] [address] 08/09/2024 3:00 PM WASH PLANT OPERATOR Office Visit [facility] [place] [address] [place] [phone] Nuvia Jauregui PA-C [address] [place] [address] documented as of this encounter Visit Diagnoses Diagnosis Recurrent UTI- Primary Urinary tract infection, site not specified Urinary retention Retention of urine, unspecified Incomplete bladder emptying Constipation, unspecified constipation type Pelvic floor dysfunction Pelvic muscle wasting Dyspareunia in female Vaginal atrophy Postmenopausal atrophic vaginitis Levator spasm Abnormal involuntary movements documented in this encounter Care Teams Boilermaker Assembly And Erection Relationship Specialty Start Date End Date Sera Hoffman PA-C [facility] [address] [place] [address] PCP - General Physician Orthopedic Dentist 04/11/23 Nuvia Jauregui PA-C [address] [place], [place] [address] Assigned Surgical Provider 09/21/23 documented as of this encounter
--- OUTSIDE RECORDS SUMMARY | 2024-06-18 14:59 | XMS_ITS | Encounter Summary ---
Author Organization [place] Address [address] [place] [address]. [place] [address] Care Team Providers Care Billing Representative Name Role Phone Sera Hoffman PA-C Primary Care Provider Zara Ingram MD Unavailable [phone] Nuvia Jauregui PA-C Unavailable [phone] Encounter Details Date Type Department Care Team (Late Contact Info) Description 07/06/2023 MyC Medical Advice [facility] [place] [address] [facility] [address] [place] [address] Nuvia Jauregui PA-C [address] [place] [address] Social History Tobacco Use Types [...] Description 06/20/2024 8:10 AM CDT Therapy Visit [facility] [address] [place] [phone] [place] [address] [place], [place] [address] 06/27/2024 8:10 AM CDT Therapy Visit [facility] [address] [place] [phone] [place] [address] [place] [address] 08/09/2024 3:00 PM LAST INSERTER Office Visit [facility] [place] [address] [address] [place] [phone] Nuvia Jauregui PA-C [address] [place], [place] [address] documented as of this encounter Visit Diagnoses Not on filedocumented in this encounter Care Teams Billing Representative Relationship Specialty Start Date End Date Sera Hoffman PA-C [facility] [address] [place] [address] PCP - General Physician Bag End Sewer 04/11/23 Zara Ingram MD [address] [place] [address]315 Assigned Surgical Provider 07/22/23 09/20/23 Nuvia Jauregui PA-C [address] [place], [place] [address] Assigned Surgical Provider 09/21/23 documented as of this encounter
--- OUTSIDE RECORDS SUMMARY | 2024-06-18 14:59 | XMS_ITS | Encounter Summary ---
Author Organization [facility] Address [address] [place] [address]. [place] [address] Care Team Providers Care Ticket Attendant Name Role Phone Sera Hoffman PA-C Primary Care Provider Zara Ingram MD Unavailable [phone] Nuvia Jauregui PA-C Unavailable [phone] Encounter Details Date Type Department Care Team (Late st Contact Info) Description 06/29/2023 Telephone [facility] [place] [address] [facility] [address] [facility] [address] [place] [address] Nuvia Jauregui PA-C [address] [place] [address] Social History Tobacco Use Types [...] encounter Miscellaneous Notes * Telephone Encounter - Buffy Miner - 06/29/2023 12:04 PM CDT [facility] Call Center Phone Message May a detailed message be left on voicemail: yes Reason for Call: Other: pt called and stated that she missed a call from [facility] - please call pt to further discuss, thanks! Action Taken: Other: Uro Travel Screening: Not Applicable documented in this encounter Plan of Treatment Upcoming Encounters Date Type Department Care Team (Late st Contact Info) Description 06/20/2024 8:10 AM CDT Therapy Visit [address] [phone] Monica Murray, PT [address] [place] [address] 06/27/2024 8:10 AM CDT Therapy Visit [address] [phone] Monica Murray, PT [address] [place] [address] 08/09/2024 3:00 PM METER AND REGULATOR SHOP SUPERVISOR Office Visit [facility] [place] [address] [facility] [address] [place] [address] Nuvia Jauregui PA-C [address] [place] [address] documented as of this encounter Visit Diagnoses Not on filedocumented in this encounter Care Teams Ticket Attendant Relationship Specialty Start Date End Date Sera Hoffman PA-C [facility] [address] [place] [address] PCP - General Physician Pulverizer 04/11/23 Zara Ingram MD [address] [place] [address] Assigned Surgical Provider 07/22/23 09/20/23 Nuvia Jauregui PA-C [address] [place] [address] Assigned Surgical Provider 09/21/23 documented as of this encounter
--- OUTSIDE RECORDS SUMMARY | 2024-06-18 14:59 | XMS_ITS | Encounter Summary ---
Author Organization [place] [facility] Address [address] [place] [address] Care Team Providers Care Epidemiology Intern Name Role Phone Sera Hoffman PA-C Primary Care Provider Nuvia Jauregui PA-C Unavailable [phone] Reason for Visit * Rehab Therapy Integrated Services - Authorized Specialty Diagnoses / Procedures Referred By Nguyen hollingsworth Referred To Contact Diagnoses Dyspareunia in female Levator spasm Pelvic floor dysfunction [address] [address] Referral ID Status Reason Start Date Expiration Date V isits Requested Visits Authorized [id number] Authorized 08/14/2023 08/27/2024 365 365 Encounter Details Date Type Department Care Team (Latest Contact Info) Description 06/06/2024 8:10 AM CDT Therapy Visit [facility] [address] [facility] [address] [facility] [address] [place] [phone] [place] [address] [place] [address] Dyspareunia in female (Primary Dx) Social History Tobacco Use Types [...] Description 06/20/2024 8:10 AM CDT Therapy Visit [address] [phone] Monica Murray, PT [address] [place] [address] 06/27/2024 8:10 AM CDT Therapy Visit [address] [phone] Monica Murray, PT [address] [place] [address] 08/09/2024 3:00 PM REWRITE EDITOR Office Visit [facility] [place] [address] [facility] [address] [place] [phone] Nuvia Jauregui PA-C [address] [place], [place] [phone] documented as of this encounter Visit Diagnoses Diagnosis Dyspareunia in female- Primary documented in this encounter Care Teams Epidemiology Intern Relationship Specialty Start Date End Date Sera Hoffman PA-C [facility] [address] [place] [address] PCP - General Physician Choir Teacher 04/11/23 Nuvia Jauregui, RAVI [address] [place] [address] Assigned Surgical Provider 09/21/23 documented as of this encounter
--- OUTSIDE RECORDS SUMMARY | 2024-06-18 14:59 | XMS_ITS | Encounter Summary ---
Author Organization [place] Address [address] [place] [address]. [place] [address] Care Team Providers Care Catalyst Operator Chief Name Role Phone Sera Hoffman PA-C Primary Care Provider Nuvia Jauregui PA-C Unavailable [phone] Encounter Details Date Type Department Care Team (Late st Contact Info) Description 11/29/2023 MyC Medical Advice [facility] [address] [place] [address] Nuvia Jauregui PA-C [address] [place] [address] Suspected UTI (Primary Dx) Social [...] Description 06/20/2024 8:10 AM CDT Therapy Visit [facility] [address] [facility] [address] [place] [phone] [place] [address] [place], [place] [address]807 06/27/2024 8:10 AM CDT [facility] [address] [facility] [address] [place] [phone] [place] [address] [place], [place] [address] 08/09/2024 3:00 PM DIETITIAN THERAPEUTIC Office Visit [facility] [place] [address] [place] [address] [address] [place] [phone] Nuvia Jauregui PA-C [address] [place], [place] [address] documented as of this encounter Results * (ABNORMAL) Urine Culture Aerobic Bacterial [[id number]] (11/29/2023 4:11 PM CDT) [facility] Culture >100,000 CFU/mL Escherichia coli(A) 11/30/2023 11:55 [...] coli Cefazolin SHIRLEY <=4 ug/mL: Susceptible Comment:Cefazolin [place] C breakpoints are for the treatment of [...] MICRO GENE RAL ORDERABLES [facility] Inf. Diseases Diag. Lab [address] [facility], [address] [place] [address] * (ABNORMAL) UA without Microscopic [[id number]] (11/29/2023 4:11 PM CDT) Color Urine Light Yellow Colorless, Straw, Light Yellow, Yellow 11/29/2023 4:32 PM CDT [facility] Appearance Urine Slightly Cloudy(A) Clear 11/29/2023 4:32 PM CDT [facility] Glucose Urine Negative Negative mg/dL 11/29/2023 4:32 PM CDT [facility] Bilirubin Urine Negative Negative 4:32 PM CDT [facility] Ketones Urine Negative Negative mg/dL 11/29/2023 4:32 PM CDT [facility] Specific [place] Urine 1.011 1.003 - 1.035 11/29/2023 4:32 PM CDT [facility] Blood Urine Trace(A) Negative 11/29/2023 4:32 PM CDT [facility] pH Urine 6.5 5.0 - 7.0 11/29/2023 4:32 PM CDT [facility] Protein Albumin Urine Negative Negative mg/dL 11/29/2023 4:32 PM CDT [facility] Urobilinogen Urine Normal Normal, 2.0 mg/dL 11/29/2023 4:32 PM CDT [facility] Nitrite Urine Positive(A) Negative 11/29/2023 4:32 PM CDT [facility] Leukocyte Esterase Urine Moderate(A) Negative 11/29/2023 4:32 PM CDT [facility] Urine MID-STREAM URINE SPECIMEN / Unknown Non-blood Collection / Unknown 11/29/2023 4:11 PM CDT 11/29/2023 4:11 PM CDT Nuvia Jauregui PA-C LAB - URINE [facility] [address] [facility] ([facility]st floor, no room number) [place] [address], [facility] documented in this encounter Visit Diagnoses Diagnosis Suspected UTI- Primary documented in this encounter Care Teams Catalyst Operator Chief Relationship Specialty Start Date End Date Sera Hoffman PA-C [facility] [address] [place] [address] PCP - General Physician Drain Tiler 04/11/23 Nuvia Jauregui PA-C [address] [place] [address] Assigned Surgical Provider 09/21/23 documented as of this encounter
--- OUTSIDE RECORDS SUMMARY | 2024-06-18 14:59 | XMS_ITS | Encounter Summary ---
Author Organization [place] Address [address] [place] [address]. [place] [address] Care Team Providers Care Senior Field Service Engineer Name Role Phone Sera Hoffman PA-C Primary Care Provider Nuvia Jauregui PA-C Unavailable Encounter Details Date Type Department Care Team (Late st Contact Info) Description 10/17/2023 MyC Medical Advice [facility] [address] [place] [address] Nuvia Jauregui PA-C [address] [place] [address] Social History Tobacco Use Types [...] Description 06/20/2024 8:10 AM CDT Therapy Visit [facility] [address] [facility] [address] [place] [phone] [place] [address] [place], [place] [address] 06/27/2024 8:10 AM CDT Therapy Visit [facility] [address] [facility] [address] [place] [phone] [place] [address] [place] [address] 08/09/2024 3:00 PM MICROSOFT DYNAMICS DEVELOPER Office Visit [facility] [address] [place] [address] Nuvia Jauregui PA-C [address] [place] [address] documented as of this encounter Visit Diagnoses Not on filedocumented in this encounter Care Teams Senior Field Service Engineer Relationship Specialty Start Date End Date Sera Hoffman PA-C [facility] [address] [place] [address] PCP - General Physician Respiratory Equipment Assistant 04/11/23 Nuvia Jauregui PA-C [address] [place] [address] Assigned Surgical Provider 09/21/23 documented as of this encounter
--- OUTSIDE RECORDS SUMMARY | 2024-06-18 14:59 | XMS_ITS | Encounter Summary ---
Author Organization [place] Address [address] [place] [address] Care Team Providers Care Manager Of Regulatory Affairs Name Role Phone Sera Hoffman PA-C Primary Care Provider Nuvia Jauregui PA-C Unavailable [phone] Encounter Details Date Type Department Care Team [...] Description 06/20/2024 8:10 AM CDT Therapy Visit [facility] [address] [facility] [address] [place] [phone] [place] [address] [place] [address] 06/27/2024 8:10 AM CDT Therapy Visit [facility] [address] [facility] [address] [place] [address] [place] [address] [place] [address] 08/09/2024 3:00 PM GORE INSERTER Office Visit [facility] [place] [address] [facility] [address] [place] [phone] Nuvia Jauregui PA-C [address] [place] [address] documented as of this encounter Visit Diagnoses Not on filedocumented in this encounter Care Teams Manager Of Regulatory Affairs Relationship Specialty Start Date End Date Sera Hoffman PA-C [facility] [address] [place] [address] PCP - General Physician Lithographic General Worker 04/11/23 Nuvia Jauregui PA-C [address] [place], [place] [address] Assigned Surgical Provider 09/21/23 documented as of this encounter
--- OUTSIDE RECORDS SUMMARY | 2024-06-18 14:59 | XMS_ITS | Clinical Summary ---
Author Organization [place] Address [address] [place] [address] Care Team Providers Care Ice Cream Scooper Name Role Phone Sera Hoffman PA-C Primary Care Provider Nuvia Jauregui PA-C Unavailable Allergies Active Allergy Reactions Criticality Noted Date [...] Encounters Date Type Department Care Team Description 06/13/2024 8:10 AM CDT Therapy Visit [facility] [address] [facility] [address] [place] [address] Wild, Monica, PT Levator spasm (Primary Dx); Dyspareunia in female; Pelvic floor dysfunction 06/13/2024 Travel 06/06/2024 8:10 AM CDT Therapy Visit [facility] [address] [place] [address] [address] [place] [address] Wild, Monica, PT Dyspareunia in female (Primary Dx) 06/06/2024 Travel 05/30/2024 7:30 AM CDT Therapy Visit [address] [address] Wild, Monica, PT Dyspareunia in female (Primary Dx); Levator spasm; Pelvic floor dysfunction 05/29/2024 Travel 04/25/2024 2:30 PM CDT Office Visit [facility] [place] [address] [facility] [address] [place] [address] Nuvia Jauregui, RAVI Recurrent UTI (Primary Dx); Urinary retention; Incomplete bladder emptying; Constipation, unspecified constipation type; Pelvic floor dysfunction; Dyspareunia in female; Vaginal atrophy; Levator spasm 04/25/2024 Travel 04/20/2024 Travel from Last 3 Months Family History Medical [...] Description 06/20/2024 8:10 AM CDT Therapy Visit [address] [place] [phone] Monica Murray, PT [address] [place] [address] 06/27/2024 8:10 AM CDT Therapy Visit [address] [place] [phone] Monica Murray, PT [address] [place] [address] 08/09/2024 3:00 PM PEOPLESOFT CRM DEVELOPER Office Visit [facility] [place] [address] [place] [phone] Nuvia Jauregui PA-C [address] [place], [place] [address] Health Maintenance Due Date Last Done Comments [...] of 2) 2015 COVID-19 Vaccine ( season) 2024 INFLUENZA VACCINE (#1) 2024 3, 05/15/2013, 05/12/2013, Additional history exists GLUCOSE 07/04/2026 07/04/2023 DTAP/TDAP/TD IMMUNIZATION (4 - Td or Tdap) 04/10/2034 04/10/2024, 04/13/2014, 03/19/2009 RSV VACCINE (1 - 1-dose 75+ series) 2040 PHQ-2 (once per calendar year) Completed 04/25/2024, [...] BASIC METABOLIC PANEL Routine 07/04/2023 2:08 PM PEOPLESOFT CRM DEVELOPER Recurrent UTI from Last 3 Months or Most Recently Relevant to Health Maintenance Results * Basic metabolic panel [LAB15] (07/04/2023 2:08 PM PEOPLESOFT CRM DEVELOPER) Sodium 141 135 - 145 mmol/L 07/04/2023 9:24 PM PEOPLESOFT CRM DEVELOPER [facility] Comment:Reference intervals for this test were updated on 05/23/2023 to more accurately reflect our healthy population. There may be differences in the flagging of prior results with similar values performed with this method. Interpretation of those prior results can be made in the context of the updated reference intervals. Potassium 3.9 3.4 - 5.3 mmol/L 07/04/2023 9:24 PM PEOPLESOFT CRM DEVELOPER [facility] Chloride 104 98 - 107 mmol/L 07/04/2023 9:24 PM PEOPLESOFT CRM DEVELOPER [facility] Carbon Dioxide (CO2) 26 22 - 29 mmol/L 07/04/2023 9:24 PM PEOPLESOFT CRM DEVELOPER [facility] Anion Gap 11 7 - 15 mmol/L 07/04/2023 9:24 PM PEOPLESOFT CRM DEVELOPER [facility] Urea Nitrogen 14.3 6.0 - 20.0 mg/dL 07/04/2023 9:24 PM PEOPLESOFT CRM DEVELOPER [facility] Creatinine 0.64 0.51 - 0.95 mg/dL 07/04/2023 9:24 PM PEOPLESOFT CRM DEVELOPER [facility] GFR Estimate >90 >60 mL/min/1. 73m2 07/04/2023 9:24 PM PEOPLESOFT CRM DEVELOPER [facility] Calcium 9.4 8.6 - 10.0 mg/dL 07/04/2023 9:24 PM PEOPLESOFT CRM DEVELOPER [facility] Glucose 90 70 - 99 mg/dL 07/04/2023 9:24 PM PEOPLESOFT CRM DEVELOPER [facility] Blood BLOOD SPECIMEN / Unknown Venipuncture / Unknown 07/04/2023 2:08 PM PEOPLESOFT CRM DEVELOPER 07/04/2023 2:08 PM PEOPLESOFT CRM DEVELOPER Nuvia Jauregui PA-C LAB - BLOOD [place] [facility] [place] [facility] [address] [facility] [address] [facility], Room [address] [place] [address], [facility] [phone] from Last 3 Months or Most Recently Relevant to Health Maintenance Care Teams Ice Cream Scooper Relationship Specialty Start Date End Date Sera Hoffman PA-C [facility] [address] [place] [address] PCP - General Physician Jetting Machine Operator 04/11/23 Nuvia Jauregui PA-C [address] [place] [address] Assigned Surgical Provider 09/21/23
--- OUTSIDE RECORDS SUMMARY | 2024-06-18 14:59 | XMS_ITS | Encounter Summary ---
Author Organization [place] Address [address] [place] [address]. [place] [address] Care Team Providers Care Design Coordinator Name Role Phone Sera Hoffman PA-C Primary Care Provider Nuvia Jauregui PA-C Unavailable [phone] Encounter Details Date Type Department Care Team (Latest Contact Info) Description 06/06/2024 Travel Social History Tobacco Use Types Packs/Day [...] 06/20/2024 8:10 AM CDT Therapy Visit [facility] [address] [facility] [address] [place] [phone] [place] [address] [place] [address] 06/27/2024 8:10 AM CDT Therapy Visit [facility] [address] [facility] [address] [place] [phone] [place] [address] [place] [address] 08/09/2024 3:00 PM NETWORK OPERATIONS PROJECT MANAGER Office Visit [facility] [place] [address] [facility] [address] [place] [phone] Nuvia Jauregui PA-C [address] [place] [address] documented as of this encounter Visit Diagnoses Not on filedocumented in this encounter Care Teams Design Coordinator Relationship Specialty Start Date End Date Sera Hoffman PA-C [facility] [address] [place] [address] PCP - General Physician Field Sales Trainer 04/11/23 Nuvia Jauregui PA-C [address] [place] [address] Assigned Surgical Provider 09/21/23 documented as of this encounter
--- OUTSIDE RECORDS SUMMARY | 2024-06-18 14:59 | XMS_ITS | Referral Summary ---
Author Organization [place] Address [address] [place] [address]. [place] [address] Care Team Providers Care Reach Truck Operator Name Role Phone Sera Hoffman PA-C Primary Care Provider Nuvia Jauregui PA-C Unavailable [phone] Encounters Date Type Department Care Team Description 06/13/2024 Travel 06/13/2024 8:10 AM CDT Therapy Visit [address] [place] [address] Wild, Monica, PT Levator spasm (Primary Dx); Dyspareunia in female; Pelvic floor dysfunction 06/06/2024 Travel 06/06/2024 8:10 AM CDT Therapy Visit [facility] [address] [place] [address] [place] [phone] Wild, Monica, PT Dyspareunia in female (Primary Dx) 05/30/2024 7:30 AM CDT Therapy Visit [facility] [address] [place] [address] [address] [place] [address] Wild, Monica, PT Dyspareunia in female (Primary Dx); Levator spasm; Pelvic floor dysfunction 05/29/2024 Travel 04/25/2024 Travel 04/25/2024 2:30 PM CDT Office Visit [facility] [place] [address] [facility] [address] [place] [address] Nuvia Jauregui, RAVI Recurrent UTI (Primary Dx); Urinary retention; Incomplete bladder emptying; Constipation, unspecified constipation type; Pelvic floor dysfunction; Dyspareunia in female; Vaginal atrophy; Levator spasm 04/20/2024 Travel from Last 3 Months Allergies Active Allergy [...] Description 06/20/2024 8:10 AM CDT Therapy Visit [address] [phone] Monica Murray, PT [address] [place] [address] 06/27/2024 8:10 AM CDT Therapy Visit [address] [place] [address] Monica Murray, PT [address] [place] [address] 08/09/2024 3:00 PM DRIVER MATERIAL HANDLER Office Visit [facility] [place] [address] [place] [phone] Nuvia Jauregui, PAKarelyC [address] [place] [address] Procedures Procedure Name Priority Date/Time Associated Diagnosis Comments BASIC METABOLIC PANEL Routine 07/04/2023 2:08 PM DRIVER MATERIAL HANDLER Recurrent UTI from Last 3 Months or Most Recently Relevant to Health Maintenance Results * Basic metabolic panel [LAB15] (07/04/2023 2:08 PM DRIVER MATERIAL HANDLER) Sodium 141 135 - 145 mmol/L 07/04/2023 9:24 PM DRIVER MATERIAL HANDLER [facility] Comment:Reference intervals for this test were updated on 05/23/2023 to more accurately reflect our healthy population. There may be differences in the flagging of prior results with similar values performed with this method. Interpretation of those prior results can be made in the context of the updated reference intervals. Potassium 3.9 3.4 - 5.3 mmol/L 07/04/2023 9:24 PM DRIVER MATERIAL HANDLER [facility] Chloride 104 98 - 107 mmol/L 07/04/2023 9:24 PM DRIVER MATERIAL HANDLER [facility] Carbon Dioxide (CO2) 26 22 - 29 mmol/L 07/04/2023 9:24 PM DRIVER MATERIAL HANDLER [facility] Anion Gap 11 7 - 15 mmol/L 07/04/2023 9:24 PM DRIVER MATERIAL HANDLER [facility] Urea Nitrogen 14.3 6.0 - 20.0 mg/dL 07/04/2023 9:24 PM DRIVER MATERIAL HANDLER [facility] Creatinine 0.64 0.51 - 0.95 mg/dL 07/04/2023 9:24 PM DRIVER MATERIAL HANDLER [facility] GFR Estimate >90 >60 mL/min/1. 73m2 07/04/2023 9:24 PM DRIVER MATERIAL HANDLER [facility] Calcium 9.4 8.6 - 10.0 mg/dL 07/04/2023 9:24 PM DRIVER MATERIAL HANDLER [facility] Glucose 90 70 - 99 mg/dL 07/04/2023 9:24 PM DRIVER MATERIAL HANDLER [facility] Blood BLOOD SPECIMEN / Unknown Venipuncture / Unknown 07/04/2023 2:08 PM DRIVER MATERIAL HANDLER 07/04/2023 2:08 PM DRIVER MATERIAL HANDLER Nuvia Jauregui PA-C LAB - BLOOD [place] [facility] [place] [facility] [address] [facility] [address] Building, Room [address] [place] [address], [facility] [phone] from Last 3 Months or Most Recently Relevant to Health Maintenance Care Teams Reach Truck Operator Relationship Specialty Start Date End Date Sera Hoffman PA-C [facility] [address] [place] [address] PCP - General Physician Electrical Products Sales Engineer 04/11/23 Nuvia Jauregui PA-C [address] [place] [address] Assigned Surgical Provider 09/21/23
--- OUTSIDE RECORDS SUMMARY | 2024-06-18 15:00 | XMS_ITS | Clinical Summary ---
Author Organization [facility] Address [address] [place] [address] Care Team Providers Care Sr Vice President Name Role Phone John Ospina MD Primary Care Provider [phone] Source Comments You are receiving this document [...] for each transition of care or referral. [facility] Allergies Active Allergy Reactions Criticality Noted Date [...] Free (3+yrs) 06/06/2008 Influenza IIV4 (Quadrivalent) 0.5mL (88616) 04/28 TDAP (BOOSTRIX) 03/19/2009 Tdap 04/13/2014 Family [...] CDT Oxygen Saturation 100% 10/09/2009 6:31 PM SUPPORT DBA Inhaled Oxygen Concentration - - Weight 67.6 [...] of 2) 2015 Cholesterol 06/28/2017 06/28/2012, 05/14/2009 DTaP/Tdap/Td (3 - Tdap) 04/13/2024 04/13/20 14, 03/19/2009 COVID-19 Vaccine (1 - 2023-2 5 season) 2024 Influenza (#1) 2024 05/15/2013, 05/12/2013, 06/06/2008 HepA Aged Out No longer eligi ble based on patient's age to complete this topic Hib Aged Out No longer eligi ble based on patient's age to complete this topic IPV (Polio) Aged Out No longer eligi ble based on patient's age to complete this topic RSV Aged Out No longer eligi ble based [...] - 06/28/2012 12:02 PM CDT Performed at [facility], [address] [place] [address] John Ospina MD LAB_1 Performing Organization Address [facility] [[email or web address]] de Phone Number HP CONVERSION * Pap Smear (02/23/2012 11:52 AM CDT) 02/23/2012 11:5 2 AM CDT Narrative HP CONVERSION - 02/28/2012 1:05 PM CDT Final GYNECOLOGICAL CYTOLOGY REPORT Pathology #: [id number] ?Date Obtained: 02/23/2012 ? Date Received: 02/24/2012 [...] Wilberto Draper MD LAB_1 Performing Organization Address [facility] [[email or web address]] de Phone Number HP CONVERSION from Last 3 Months or Most Recently Relevant to Health Maintenance Care Teams Sr Vice President Relationship Specialty Start Date End Date John Ospina MD [address] [place] [address] PCP - General 09/02/13
--- OUTSIDE RECORDS SUMMARY | 2024-06-18 15:00 | XMS_ITS | Continuity of Care Document ---
Author Name [facility] Organization [facility] Care Team Providers Care Cable Worker Helper Name Role Phone [facility] Unavailable Unavailable Medications Combined list of outpatient medications from Department of Defense and Veterans Affairs facilities.Medications provided include 1) outpatient medications from the last 15 months, and 2) patient-reported medications. Medication Details Route Status Patient Instructions Prescription Expires Prescription Number Last Dispense Date Ordering Provider Order Date Order Qty Source CEPHALEXIN (CEPHALEXIN MONOHYDRATE ), 500MG, CAPSULE, ORAL, TEVA [place], 500 ea. BOTTLE Active [id number] 2023 14 Pharmac y Data Transac tion Service Facilit y NITROFURANT OIN MONO-MACRO (NITROFURAN TOIN MONOHYD/M-C RYST), 100 MG, CAPSULE, ORAL, ALVOGEN INC, 100 ea. BOTTLE Active [id number] 4 2023 14 Pharmac y Data Transac tion Service Facilit y SULFAMETHOX AZOLE-TRIME THOPRIM (SULFAMETHO XAZOLE/TRIM ETHOPRIM), 800-160MG, TABLET, ORAL, AUROBINDO PHARM, 500 ea. BOTTLE Active [id number] 4 2023 14 Pharmac y Data Transac tion Service Facilit y SULFAMETHOX AZOLE-TRIME THOPRIM (SULFAMETHO XAZOLE/TRIM ETHOPRIM), 800-160MG, TABLET, ORAL, AUROBINDO PHARM, 500 ea. BOTTLE Active [id number] 2023 14 Pharmac y Data Transac tion Service Facilit y Immunizations Combined list of available immunizations from the Department of Defense and Veterans Affairs facilities. Immunization Series Date Given Administered By Site Reaction Lot Number CVX Code Drug Public Service Director Status Comments Source INFLUENZA, UNSPECIFIED FORMULATION 2010 88 complet ed [place] [facility] Social History Combined list of available smoking, tobacco, and other social history from Department of Defense and Veterans Affairs facilities. Social History Type Response Date Comment Sourc e This section is an empty social history section. DoD
--- OUTSIDE RECORDS SUMMARY | 2024-06-18 15:00 | XMS_ITS | Continuity of Care Document ---
Author Organization [facility] Address [address] [place] [address] Phone Care Team Providers Care Order Clerk Name Role Phone Ondina MAN, PhD, Aleksey Unavailable Unavai lable Allergies, Adverse Reactions, Alerts Substance Reaction Status Criticality simvastatin Muscle pain Active No Information Medications Medication Instructions Dosage Effective Dates (start - stop) Status Comments ADDERALL (unknown strength) Not Available - Active CITALOPRAM HBR (unknown strength) Not Available - Active IBUPROFEN (unknown strength) Not Available - Active OXYBUTYNIN CHLORIDE (unknown strength) Not Available - Active Procedures Procedure Date Office/Outpatient Visit,[facility] Advance Directives Directive Yes / No Effective Date File Name No Information Encounters Encounter Description Practice Location Reason(s) For Visit Diagnoses Date Provider Providers Copied on Encounter [facility], [address], [place], [id number] , [place] tel: [phone] [facility] No Information 0 Ondina [place]. [facility] [place], [address], [place], [address], [place]. tel: [phone] Office/Outpat ient Visit, [facility], [address], [place], [id number] , [place] tel: [phone] [facility] Other intervertebral disc displacement, lumbar region 0 Ondina [place]. [facility], [address], [place], [address], [place]. [phone] Referring Provider: Gm Ribeiro [address], [place], [address]. tel:[phone] [facility], [address], [place], [place], [id number] , [place] tel:[phone] [facility] Low back pain 0 Ondina [place]der. [facility] [place], [address], [place], [address], [place]. [phone] Family History Family Member Type Diagnosis Age At Onset No Information Payers Payer name Insurance type Covered constitution party ID Authorden jarvistierra(s) [facility] [id number] Social History Type Description Quantity Date Captured [...]
--- OUTSIDE RECORDS SUMMARY | 2024-06-18 15:00 | XMS_ITS | Clinical Summary ---
Author Organization [employer] [facility] [employer] Address [place], [place] [address] Care Team Providers Care Movie Writer Name Role Phone Cr Ribeiro PA-C Primary Care Provider [phone] Allergies Active Allergy Reactions Criticality Noted Date Comments Simvastatin Myalgia 06/03/2013 Medications Medication Sig Dispensed Refills Start Date End Date Status dextroamphetamine-ampheta mine (ADDERALL) 20 mg tablet 07/06/2015 Active citalopram (CELEXA) 20 mg tablet 11/03/2020 Active acetaminophen (TylenoL) 325 mg cap Take by mouth. 0 11/04/2021 Active Active Problems Problem Noted Date Diagnosed Date Hematometra 06/03/2013 Pelvic pain 06/03/2013 Encounters Date Type Department Care Team Description 05/23/2024 1:30 PM CDT Office Visit [facility] [address] [place] [address] Florin Hicks MD 05/22/2024 Travel 05/03/2024 Orders Only [facility] [address] [place] [address] Betsey Bishop 1 scan: (1-Ord) Geronimoo Report 04/26/2024 Travel from Last 3 Months Immunizations Name Administration Dates Next Due Influenza [...] Comments Blood Pressure 136/85 11/04/2021 8:55 AM NREMT Pulse 88 11/04/2021 8:55 AM NREMT Temperature 36.8 ??C (98.2 ??F) 11/04/2021 8 :55 AM NREMT Respiratory Rate 16 06/11/2013 9:04 AM CDT Oxygen Saturation 99% 06/11/2013 9:0 6 AM CDT Inhaled Oxygen Concentration - - Weight 65.8 kg (145 lb) 04/28/2022 4:06 PM CDT Pt. reported TB 04-28-2022 Height 160 cm (5' 3) 04/28/2022 4:06 PM CDT Pt. reported TB 04-28-2022 Body Mass Index 25.69 04/28/2022 4:06 PM CDT Plan of Treatment Health Maintenance Due [...] day) for age 18+ 04/28/2023 04/28/2022, 11/04/2021 Tetanus booster 04/13/2024 04/13/2014, 03/19/2009 COVID-19 vaccine series ( season) 2024 Influenza for age 50-64 04/28/2024 05/15/20 13, 05/12/2013, 05/04/2011, Additional history exists Tdap Completed 04/13/2014, 03/19/2009 Pneumococcal series for age 6-64 Aged Out No longer eligible based on patient's age to complete this topic Procedures Procedure Name Priority Date/Time Associated Diagnosis Comments EXTENDED HOLTER Routine 05/03/2024 Palpitation ECHO TRANSTHORACIC COMPLETE Routine 04/26/2024 8:11 AM CDT Palpitations XR MAMMO BILAT SCREEN FFDM (IA) Routine 09/21/2011 9:42 AM NREMT Other screening mammogram from Last 3 Months or Most Recently Relevant to Health Maintenance Results * EXTENDED HOLTER (05/03/2024) Cr Ribeiro PA-C CARDIAC SERVICES ORD * ECHO TRANSTHORACIC COMPLETE (04/26/2024 8:11 AM CDT) AORTIC VALVE MEAN PG 4 mmHg EJECTION FRACTION 59 % PEAK TR VELOCITY 2.2 m/s LVEDD 3.9 cm Anatomical Region Laterality Modality Ultrasound 04/26/2024 8:11 AM CDT Narrative 04/26/2024 8:53 AM CDT ECHOCARDIOGRAM JODY GRAF ? Accession#: ?? [id number] : ?1965 59 years Study Date: ?? 04/26/2024 8:11:19 AM Gender: F ?BP: ? 126/81 mmHg Height: 160.00 cm ?BSA: ?1.69 m? ? ? Weight: 66.00 kg ? Tech: ? MSR ? Referring MD: CR RIBEIRO Site: ? [facility] Reading Location: Mobile OP Patient Location: Outpatient. Procedure: 2D, Color Doppler and Spectral Doppler. Indication for study: Palpitations Cardiac Rhythm: Regular.Study quality: Good. Final Impressions: 1. Normal left ventricular size, normal wall thickness, normal global systolic function, calculated EF of 59 %. 2. Right ventricular cavity size is normal, global systolic RV function is normal. 3. Normal left atrium size. 4. The aortic valve is sclerotic, no stenosis and trivial regurgitation. 5. The mitral valve is sclerotic, trace mitral regurgitation. 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 Mild-moderate tricuspid regurgitation. 8. Normal estimated pulmonary pressures by tricuspid regurgitation velocity and right atrial pressure (20 mmHg plus RAP). 9. No pericardial effusion. Chamber Sizes and Function Normal left ventricular size, normal wall thickness, normal global systolic function, calculated EF of 59 %. Left atrial size is normal. Right ventricular cavity size is normal, global systolic RV function is normal. The right atrium is normal. Right atrial volume index is 15 ml/m? ? ?. Right atrial area is 11 cm? ? ?. The pulmonary artery is not well visualized. The sinus of Valsalva is normal sized. The ascending aorta is normal sized. Valves, RV Pressures and Diastolic Function The aortic valve is sclerotic, no stenosis and trivial regurgitation. The mitral valve is sclerotic, trace mitral regurgitation. Normal diastolic function. The tricuspid valve is myxomatous. Tricuspid regurgitation is mild-moderate. The tricuspid regurgitant velocity is 2.2 m/s, the estimated right ventricular systolic pressure is 20 mmHg plus right atrial pressure. There is normal estimated pulmonary pressure by tricuspid regurgitation velocity and right atrial pressure. The pulmonic valve is normal. Trace pulmonary regurgitation. Masses, Effusion, Shunts There is no pericardial effusion. The inferior vena cava is normal sized, respiratory size variation greater than 50%. Interatrial septum is not well visualized. MEASUREMENTS AND CALCULATIONS 2-D Measurements and LV Function: LVID (d) 3.9 cm Planimetered EF 59 % LVID (s) 2.7 cm LV FS% (2D) ? 30 % IVS (d) ??0.9 cm LVOT diameter ?? 2.1 cm LVPW (d) 0.8 cm HR ?75 bpm Ao Sinus 3.3 cm LA Vol index ?20 ml/m2 Asc Ao ?? 3.2 cm RA Vol index ?15 ml/m2 ?RA area ? 11 cm?RV Max 4C (d) ?? 3.3 cm Diastology: Mitral ?Tissue Doppler E Peak 0.5 m/s ??e', Septum ? 0.09 m/s A Peak 0.8 m/s ??e', Lateral ?0.13 m/s E/A ?0.7 ?E/e' Average ?? 4.94 DT ? 162 msec Aortic Valve: Vmax ? 1.1 m/s ??SNEHA (V) ?? 2.70 cm? ? ? VTI ?0.25 m ?? SNEHA (I) ?? 2.59 cm? ? ? LVOT V max 0.9 m/s ??Max PG ?5 mmHg LVOT VTI ?? 0.18 m ?? Mean PG ?? 4 mmHg SV ? 64 ml ?Dim Index 0.73 SV index ?? 38 ml/m? ? ? CO ?4.8 l/min ?CI ?2.8 l/min/m? ? ? Mitral Valve: MVA ?4.7 cm? ? ? MV P 1/2 47 msec Tricuspid Valve and estimated PA pressures: TR Vmax 2.2 m/s TAPSE 2.8 cm TR maxG 20 mmHg . This study was interpreted by an [facility] accredited facility. CC: HIM (med records) [facility]. ??Final ?? Procedure Note Veronica Chapman, [facility] - 04/26/2024 ECHOCARDIOGRAM JODY GRAF : 1965 59 years Study Date: 04/26/2024 8:11:19 AM Gender: F BP: 126/81 mmHg Height: 160.00 cm BSA: 1.69 m? ? ? Weight: 66.00 kg Tech: MSR Referring MD: CR RIBEIRO Site: [facility] Reading Location: Mobile OP Patient Location: Outpatient. Procedure: 2D, Color Doppler and Spectral Doppler. Indication for study: Palpitations Cardiac Rhythm: Regular.Study quality: Good. Final Impressions: 1. Normal left ventricular size, normal wall thickness, normal globalsystolic function, calculated EF of 59 %. 2. Right ventricular cavity size is normal, global systolic RV functionis normal. 3. Normal left atrium size. 4. The aortic valve is sclerotic, no stenosis and trivialregurgitation. 5. The mitral valve is sclerotic, trace mitral regurgitation. 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 Mild-moderate tricuspid regurgitation. 8. Normal estimated pulmonary pressures by tricuspid regurgitationvelocity and right atrial pressure (20 mmHg plus RAP). 9. No pericardial effusion. Chamber Sizes and Function Normal left ventricular size, normal wall thickness, normal globalsystolic function, calculated EF of 59 %. Left atrial size is normal.Right ventricular cavity size is normal, global systolic RV function isnormal. The right atrium is normal. Right atrial volume index is 15ml/m? ? ?. Right atrial area is 11 cm? ? ?. The pulmonary artery is not wellvisualized. The sinus of Valsalva is normal sized. The ascending aorta isnormal sized. Valves, RV Pressures and Diastolic Function The aortic valve is sclerotic, no stenosis and trivial regurgitation. Themitral valve is sclerotic, trace mitral regurgitation. Normal diastolicfunction. The tricuspid valve is myxomatous. Tricuspid regurgitation ismild-moderate. The tricuspid regurgitant velocity is 2.2 m/s, theestimated right ventricular systolic pressure is 20 mmHg plus right atrialpressure. There is normal estimated pulmonary pressure by tricuspidregurgitation velocity and right atrial pressure. The pulmonic valve isnormal. Trace pulmonary regurgitation. Masses, Effusion, Shunts There is no pericardial effusion. The inferior vena cava is normal sized,respiratory size variation greater than 50%. Interatrial septum is notwell visualized. MEASUREMENTS AND CALCULATIONS 2-D Measurements and LV Function: LVID (d) 3.9 cm Planimetered EF 59 % LVID (s) 2.7 cm LV FS% (2D) 30 % IVS (d) 0.9 cm LVOT diameter 2.1 cm LVPW (d) 0.8 cm HR 75 bpm Ao Sinus 3.3 cm LA Vol index 20 ml/m2 Asc Ao 3.2 cm RA Vol index 15 ml/m2 RA area 11 cm? ? ? RV Max 4C (d) 3.3 cm Diastology: Mitral Tissue Doppler E Peak 0.5 m/s e', Septum 0.09 m/s A Peak 0.8 m/s e', Lateral 0.13 m/s E/A 0.7 E/e' Average 4.94 DT 162 msec Aortic Valve: Vmax 1.1 m/s SNEHA (V) 2.70 cm? ? ? VTI 0.25 m SNEHA (I) 2.59 cm? ? ? LVOT V max 0.9 m/s Max PG 5 mmHg LVOT VTI 0.18 m Mean PG 4 mmHg SV 64 ml Dim Index 0.73 SV index 38 ml/m? ? ? CO 4.8 l/min CI 2.8 l/min/m? ? ? Mitral Valve: MVA 4.7 cm? ? ? MV P 1/2 47 msec Tricuspid Valve and estimated PA pressures: TR Vmax 2.2 m/s TAPSE 2.8 cm TR maxG 20 mmHg . This study was interpreted by an [facility] accredited facility. CC: PADMINI (med records) [facility]. Final Cr Ribeiro PA-C ECHO ORD * XR MAMMO BILAT SCREEN FFDM (09/21/2011 9:42 AM NREMT) Anatomical Region Laterality Modality BREASTS, Breast Left, Breast Right Bilateral Mammography Impressions 09/21/2011 10:02 AM NREMT ??There is no radiographic evidence for malignancy. ??Recommend annual mammograms. A lay language report of this examination will be provided to the patient. MAMMOGRAM ASSESSMENT: ??ACR 2 Benign Narrative 09/21/2011 10:02 AM NREMT XR MAMMO BILAT SCREEN FFDM [G0202.0] CLINICAL HISTORY: ??This is an asymptomatic 46 y.o. patient. INDICATION FOR EXAM: Mammogram Screening. TECHNIQUE: CC & MLO views were obtained. ??This digital study was evaluated with the assistance of Computer-Aided Detection. ?? COMPARISON FILMS: Yes 08/26/10 [facility] FINDINGS: ??Mammographically, the breast tissue is heterogeneously dense, which could obscure detection of small masses (approximately 51% - 75% glandular). ??No suspicious masses or microcalcifications. ??Benign appearing calcifications within both breasts. Procedure Note Vipin, Carrie Milan MD - 09/21/2011 XR MAMMO BILAT SCREEN FFDM [G0202.0] CLINICAL HISTORY: This is an asymptomatic 46 y.o. patient. INDICATION FOR EXAM: Mammogram Screening. TECHNIQUE: CC & MLO views were obtained. This digital study was evaluatedwith the assistance of Computer-Aided Detection. COMPARISON FILMS: Yes 08/26/10 [facility] FINDINGS: Mammographically, the breast tissue is heterogeneously [...] 6:15 AM 06/10/2013 8:50 AM Care Teams Movie Writer Relationship Specialty Start Date End Date Cr Ribeiro PA-C [address] [place] [id number] PCP - General Physician Seat Cover Installer 07/01/20
--- NOTE | 2024-06-18 15:20 | CRLHL7_ITS ---
For Patients: As a result of the Century Cures Act, medical imaging exams and procedure reports are released immediately into your electronic medical record. You may view this report before your referring provider. If you have questions, please contact your health care provider. BILATERAL SCREENING MAMMOGRAM WITH COMPUTER-AIDED DETECTION AND TOMOSYNTHESIS TECHNIQUE: CC and MLO views were obtained. These mammographic images have been obtained using full-field digital technique. These mammographic images were interpreted with the benefit of computer-aided detection. Breast Tomosynthesis was used in this interpretation. COMPARISON FILM: 09/26/22, 08/22/19, 05/25/16. FINDINGS: The breasts are heterogeneously dense, which may obscure small masses IMPRESSION: There is no radiographic evidence for malignancy. ASSESSMENT: BI-RADS Category 2: Benign RECOMMENDATION: Routine screening mammogram in 1 year. A lay language report of this examination will be provided to the patient. Wilberto Vicente M.D. Diagnostic Radiologist [email or web address] CARMELITA/Dictated by: Wilberto Vicente MD @ 06/21/2024 8:41:00 AM (Electronically Signed)
== END 2024-06-18 14:57 | disposition home or self-care (01) ==
LOC: MAMMO 14:57
PROVIDERS: PCP Physician Assistant Medical; Visit Provider Physician Assistant Medical
DX: Z12.31 Encounter for screening mammogram for malignant neoplasm of breast (principal); R92.333 Mammographic heterogeneous density, bilateral breasts
CPT/HCPCS: 77063; 77067

== ENCOUNTER 2025-05-15 07:45 | Outpatient (CLI) | payer OTHER, SELFPAY | END 2025-05-15 07:46 | disposition home or self-care (01) | LOC: FRMREF 07:46 | PROVIDERS: PCP Physician Assistant Medical; Visit Provider Physician Assistant Medical | DX: Z00.00 Encounter for general adult medical examination without abnormal findings (principal) | CPT/HCPCS: 80053; 80061; 82784; 84443; 86231; 86258; 86364 ==